=== PATIENT | female | born 1980 | race Caucasian/White ===

== ENCOUNTER 2017-01-18 19:05 | Emergency (ER) | payer OTHER ==
[2017-01-18 19:35] VITALS: RESP 16; TEMP 97.9
[2017-01-18] MEDS ORDERED: KETOROLAC 30 MG/ML 1 ML VIAL IVP STA (19:42)
[2017-01-18] MEDS ORDERED: ORPHENADRINE 30 MG/ML 2 ML VIAL IVP STA (19:42)
[2017-01-18 19:52] LABS: Appearance,Urine Cloudy (Clear); Bacteria,Urine Rare /hpf; Bilirubin,Urine Negative (Negative); Glucose,Urine (UA) Negative (Negative); Ketones,Urine Negative (Negative); Leukocyte Esterase,Urine Large (Negative); Nitrite,Urine Negative (Negative); PH, Urine 7.5 (5.0-8.0); Particle Count 16914; Protein,Urine Negative (Negative); RBC,Urine 6 /hpf (0-5); Specific Gravity,Urine 1.004 (1.001-1.035); Squamous Epithelial Cell,Urine 13 /hpf (0-4); UA Billing (MACRO vs. MICRO) MICRO; Urobilinogen,Urine <2.0 mg/dL (<2.0); WBC,Urine 25 /hpf (0-5)
--- NOTE | 2017-01-18 20:18 | ED ---
Back Pain HPI - General Chief Complaint: Back Pain/Injury Stated Complaint: Back Pain Time Seen by Provider: 01/18/17 19:08 Source: patient, EMS, RN notes reviewed, old records reviewed Limitations: physical limitation - History of Present Illness Initial Comments: Patient is a 36-year-old female presents emergency Department via EMS after receiving several more rounds of morphine for her back pain. Patient presented with past weekend she was doing a lot of weeding and a lot of repetitive movements and exacerbated her chronic back pain. She reports that she knows that she has L1-L2 disc submersion L3-L4. Patient also reports that she has been able to urinate. Denies any loss of bowel or bladder control. Patient reports that she follows up with Dr. Jes Jewell. Patient reports that she received [place] last urine took a few of her old pills. Patient answers. Patient denies emergency department expecting have an MRI. Patient denies any fever or chills, nausea or vomiting or any other associated symptoms. - Related Data Home Medications Medication Instructions Recorded Confirmed HYDROcodone/APAP 5-325MG [[place] 5] 1 tab PO TID PRN 04/08/14 01/18/17 Fluticasone Nasal Depue [Flonase 1 spray EA NOSTRIL DAILY 01/18/17 01/18/17 Nasal Depue] Norgestimate-Ethinyl Estradiol 1 tab PO DAILY 01/18/17 01/18/17 [Ortho Tri-Cyclen Lo Tablet] Pseudoephedrine 12Hr [Sudafed 12Hr] 120 mg PO Q12H 01/18/17 01/18/17 Previous Rx's Medication Instructions Recorded Baclofen 10 mg PO TID #30 tab 01/18/17 HYDROcodone/APAP 10-325MG [[place] 1 tab PO Q6H PRN #12 tab 01/18/17 10-325] Allergies Allergy/AdvReac Type Severity Reaction Status Date / Time No Known Allergies Allergy Verified 01/18/17 19:36 Review of Systems ROS Statement: Those systems with pertinent positive or pertinent negative responses have been documented in the HPI. ROS Other: All systems not noted in ROS Statement are negative. Past Medical History Additional Past Medical History / Comment(s): herniated disc History of Any Multi-Drug Resistant Organisms: None Reported Additional Past Surgical History / Comment(s): breast biopsy Past Psychological History: No Psychological Hx Reported Smoking Status: Never smoker Past Alcohol Use History: None Reported Past Drug Use History: None Reported General Exam - General Exam Comments Initial Comments: Well-appearing 36-year-old female. No acute distress. Limitations: physical limitation General appearance: alert, in no apparent distress Head exam: Present: atraumatic, normocephalic, normal inspection Eye exam: Present: normal appearance, PERRL, EOMI. Absent: scleral icterus, conjunctival injection, periorbital swelling ENT exam: Present: normal exam, mucous membranes moist Neck exam: Present: normal inspection Respiratory exam: Present: normal lung sounds bilaterally. Absent: respiratory distress, wheezes, rales, rhonchi, stridor Cardiovascular Exam: Present: regular rate, normal rhythm, normal heart sounds. Absent: systolic murmur, diastolic murmur, rubs, gallop, clicks GI/Abdominal exam: Present: soft, normal bowel sounds. Absent: distended, tenderness, guarding, rebound, rigid Extremities exam: Present: normal inspection, full ROM, normal capillary refill. Absent: tenderness, pedal edema, joint swelling, calf tenderness Back exam: Present: normal inspection Neurological exam: Present: alert, oriented X3, CN II-XII intact Psychiatric exam: Present: normal affect, normal mood Skin exam: Present: warm, dry, intact, normal color. Absent: rash Course Vital Signs 01/18/17 01/18/17 01/18/17 19:20 19:29 21:03 Temperature 97.9 F Pulse Rate 80 77 Respiratory 16 16 Rate Blood Pressure 113/74 113/66 O2 Sat by Pulse 100 100 Oximetry Medical Decision Making - Medical Decision Making 36-year-old female. No acute distress presents emergency department via EMS for acute exacerbation of chronic back pain. She received some MORPHINE. Patient also received 30 mg of Toradol and 60 mg of Norflex IV. Patient is requesting an MRI. Patient was able to ambulate from the wheelchair to the bathroom and urinated for us. Patient urinalysis does show signs of WBC and leukocyte esterase. Culture will be obtained. Patient was given x-ray of the lumbar and thoracic spine. Xrays are neagive. Patient will be discharged with Rx for pain medication and follow up with Orthopedic. Javier written for outpatient MRI lumbar spine. Patient undrestands treatment plan and will comply. - Lab Data Lab Results 01/18/17 01/18/17 Range/Units 19:35 19:35 Urine Color Light Yellow Urine Appearance Cloudy H (Clear) Urine pH 7.5 (5.0-8.0) Ur Specific [place] 1.004 (1.001-1.035) Urine Protein Negative (Negative) Urine Glucose (UA) Negative (Negative) Urine Ketones Negative (Negative) Urine Blood Negative (Negative) Urine Nitrite Negative (Negative) Urine Bilirubin Negative (Negative) Urine Urobilinogen <2.0 (<2.0) mg/dL Ur Leukocyte Esterase Large H (Negative) Urine RBC 6 H (0-5) /hpf Urine WBC 25 H (0-5) /hpf Ur Squamous Epith Cells 13 H (0-4) /hpf Urine Bacteria Rare H (None) /hpf Urine Yeast (Budding) Occasional H (None) /hpf Urine HCG, Qual Not Detected (Not Detectd) - Radiology Data Radiology results: report reviewed XRay negative for any acute process. Disposition Clinical Impression: Acute exacerbation of chronic low back pain Disposition: HOME SELF-CARE Condition: Good Instructions: Acute Low Back Pain (ED) Additional Instructions: Follow-up with her primary care provider as well as her back specialist within the next week. Take pain medication and muscle relaxers as prescribed. Patient should complete outpatient MRI within the next 3 weeks as directed. Return to the emergency department if any alarming signs or symptoms occur. Prescriptions: Baclofen 10 mg PO TID #30 tab HYDROcodone/APAP 10-325MG [[place] 10-325] 1 tab PO Q6H PRN #12 tab PRN Reason: Pain Referrals: Vladimir Bazzi DO [Primary Care Provider] - 1-2 days Time of Disposition: 20:43
--- NOTE | 2017-01-18 20:20 | XR ---
EXAMINATION TYPE: XR thoracic spine 2V DATE OF EXAM: 01/18/2017 CLINICAL HISTORY: pain TECHNIQUE: Frontal, lateral, and swimmer's view of thoracic spine are obtained. COMPARISON: None. FINDINGS: Thoracic spine show satisfactory alignment without evidence of acute fracture or dislocatio n. Vertebral body heights are preserved. Disc spaces are well preserved. Visualized ribs are unrem arkable. IMPRESSION: No acute fracture or dislocation is seen in the thoracic spine. ICD 10 NO FRACTURE, INIT IAL EVALUATION
--- NOTE | 2017-01-18 20:21 | XR ---
EXAMINATION TYPE: XR lumbar spine 2 or 3V DATE OF EXAM: 01/18/2017 CLINICAL HISTORY: pain TECHNIQUE: Three views of the lumbar spine are submitted. COMPARISON: None. FINDINGS: There are 5 lumbar type vertebral bodies identified. The lumbar spine shows satisfactory alignment w ithout evidence of acute fracture or dislocation. Vertebral body heights are within normal limits. Disc spaces are within normal limits. The overlying soft tissue appears unremarkable. IMPRESSION: No acute fracture or dislocation is seen in the lumbar spine. ICD 10 NO FRACTURE, INITIAL EVALUATION
[2017-01-18 21:04] VITALS: BP 113/66; PULSE 77
== END 2017-01-18 21:02 | disposition home or self-care (01) ==
LOC: EC 19:05
DX: M54.5 Low back pain (principal); G89.29 Other chronic pain; Z79.3 Long term (current) use of hormonal contraceptives; Z79.899 Other long term (current) drug therapy
CPT/HCPCS: 81001; 81025; 72070; 72100; 99284; 96374; 96375; J2360; J1885

== ENCOUNTER 2017-05-01 20:20 | Emergency (ER) | payer OTHER ==
[2017-05-01 20:33] VITALS: RESP 16
[2017-05-01] MEDS ORDERED: PANTOPRAZOLE 40 MG/10 ML VIAL IVP STA (21:50)
[2017-05-01] MEDS ORDERED: SODIUM CHLORIDE 0.9% 500 ML IV STA (21:50)
[2017-05-01] MEDS ORDERED: ONDANSETRON 4 MG/2 ML VIAL IVP STA (22:06)
[2017-05-01] MEDS ORDERED: MAG HYDROX/AL HYDROX/SIMETH 30 ML, HYOSCYAMINE ELIXIR 10 ML, CIMETIDINE HCL 300 MG PO STA ×3 (22:06)
[2017-05-01 22:23] LABS: Basophils % (A) 0 %; CH 32.8; CHCM 35.4; Eosinophils # (A) 0.1 k/uL (0-0.7); Eosinophils % (A) 1 %; HCT 38.6 % (34.0-46.0); HDW 2.61; HGB 13.2 gm/dL (11.4-16.0); Luc # (Auto) 0.12; Luc % (Auto) 2; Lymphocytes # (A) 1.9 k/uL (1.0-4.8); Lymphocytes % (A) 30 %; MCH 31.9 pg (25.0-35.0); MCHC 34.2 g/dL (31.0-37.0); MCV 93.3 fL (80.0-100.0); Mean Platelet Volume 6.9; Monocytes # (A) 0.4 k/uL (0-1.0); Monocytes % (A) 6 %; Neutrophils # (A) 3.9 k/uL (1.3-7.7); Neutrophils % (A) 61 %; RBC 4.13 m/uL (3.80-5.40); RDW 13.2 % (11.5-15.5); WBC 6.3 k/uL (3.8-10.6)
--- NOTE | 2017-05-01 22:31 | ED ---
Abdominal Pain HPI - General Chief Complaint: Abdominal Pain Stated Complaint: upper abdominal pain Time Seen by Provider: 05/01/17 21:50 Source: patient, RN notes reviewed Mode of arrival: ambulatory Limitations: no limitations - History of Present Illness Initial Comments: This a 36-year-old female presents emergency Department chief complaint epigastric pain. Patient states this started primarily today. She's had some on and off discomfort last few days. Patient states that she was diagnosed with an ulcer in the past but never had an EGD. Patient states that she was on antiacids for several weeks in symptoms resolved. Patient states that she has not taken the medication in years. Patient denies any vomiting states that she does have some nausea. Denies fever, chills, diarrhea constipation. She states eating does not make symptoms better or worse at this time. Has not tried any [id number] medications to alleviate her symptoms. - Related Data Home Medications Medication Instructions Recorded Confirmed Norgestimate-Ethinyl Estradiol 1 tab PO DAILY 01/18/17 05/01/17 [Ortho Tri-Cyclen Lo Tablet] HYDROcodone/APAP 10-325MG [[place] 1 tab PO TID PRN 05/01/17 05/01/17 10-325] Previous Rx's Medication Instructions Recorded Baclofen 10 mg PO TID #30 tab 01/18/17 Omeprazole 40 mg PO DAILY #14 capsule. 05/01/17 Allergies Allergy/AdvReac Type Severity Reaction Status Date / Time No Known Allergies Allergy Verified 05/01/17 21:54 Review of Systems ROS Statement: Those systems with pertinent positive or pertinent negative responses have been documented in the HPI. ROS Other: All systems not noted in ROS Statement are negative. Past Medical History Past Medical History: No Reported History Additional Past Medical History / Comment(s): herniated disc, ulcer History of Any Multi-Drug Resistant Organisms: None Reported Past Surgical History: No Surgical Hx Reported Additional Past Surgical History / Comment(s): breast biopsy Past Psychological History: No Psychological Hx Reported Smoking Status: Never smoker Past Alcohol Use History: None Reported Past Drug Use History: None Reported General Exam Limitations: no limitations General appearance: alert, in no apparent distress Neck exam: Present: normal inspection. Absent: tenderness, meningismus, lymphadenopathy Respiratory exam: Present: normal lung sounds bilaterally. Absent: respiratory distress, wheezes, rales, rhonchi, stridor Cardiovascular Exam: Present: regular rate, normal rhythm, normal heart sounds. Absent: systolic murmur, diastolic murmur, rubs, gallop, clicks GI/Abdominal exam: Present: soft, tenderness (Mild epigastric tenderness), normal bowel sounds. Absent: distended, guarding, rebound, rigid Back exam: Absent: CVA tenderness (R), CVA tenderness (L) Skin exam: Present: warm, dry, intact, normal color. Absent: rash Course Vital Signs 05/01/17 20:30 Temperature 97.7 F Pulse Rate 69 Respiratory 16 Rate Blood Pressure 143/89 O2 Sat by Pulse 99 Oximetry Medical Decision Making - Medical Decision Making 36-year-old female presented for abdominal pain. Patient states that she did have some improvement with GI cocktail. Patient's labwork unremarkable. Patient does have moderate amount of bowel gas and stool. This may be comp keeping her issue. Patient was started on omeprazole. Return parameters were discussed. - Lab Data Result diagrams: 05/01/17 22:11 05/01/17 22:11 Lab Results 05/01/17 05/01/17 05/01/17 Range/Units 22:01 22:01 22:11 WBC (3.8-10.6) k/uL RBC (3.80-5.40) m/uL Hgb (11.4-16.0) gm/dL Hct (34.0-46.0) % MCV (80.0-100.0) fL MCH (25.0-35.0) pg MCHC (31.0-37.0) g/dL RDW (11.5-15.5) % Plt Count (150-450) k/uL Neutrophils % % Lymphocytes % % Monocytes % % Eosinophils % % Basophils % % Neutrophils # (1.3-7.7) k/uL Lymphocytes # (1.0-4.8) k/uL Monocytes # (0-1.0) k/uL Eosinophils # (0-0.7) k/uL Basophils # (0-0.2) k/uL Sodium 139 (137-145) mmol/L Potassium 3.6 (3.5-5.1) mmol/L Chloride 104 (98-107) mmol/L Carbon Dioxide 26 (22-30) mmol/L Anion Gap 9 mmol/L BUN 13 (7-17) mg/dL Creatinine 0.75 (0.52-1.04) mg/dL Est GFR (MDRD) Af Amer >60 (>60 ml/min/1.73 sqM) Est GFR (MDRD) Non-Af >60 (>60 ml/min/1.73 sqM) Glucose 91 (74-99) mg/dL Calcium 9.1 (8.4-10.2) mg/dL Total Bilirubin 1.3 (0.2-1.3) mg/dL AST 18 (14-36) U/L ALT 27 (9-52) U/L Alkaline Phosphatase 58 (38-126) U/L Total Protein 6.7 (6.3-8.2) g/dL Albumin 4.4 (3.5-5.0) g/dL Amylase <30 L (30-110) U/L Lipase 64 (23-300) U/L Urine Color Yellow Urine Appearance Clear (Clear) Urine pH 5.5 (5.0-8.0) Ur Specific [place] 1.027 (1.001-1.035) Urine Protein Trace H (Negative) Urine Glucose (UA) Negative (Negative) Urine Ketones Trace H (Negative) Urine Blood Moderate H (Negative) Urine Nitrite Negative (Negative) Urine Bilirubin Negative (Negative) Urine Urobilinogen <2.0 (<2.0) mg/dL Ur Leukocyte Esterase Moderate H (Negative) Urine RBC 9 H (0-5) /hpf Urine WBC 6 H (0-5) /hpf Ur Squamous Epith Cells 6 H (0-4) /hpf Urine Bacteria Rare H (None) /hpf Urine Mucus Moderate H (None) /hpf Urine HCG, Qual Not Detected (Not Detectd) 05/01/17 Range/Units 22:11 WBC 6.3 (3.8-10.6) k/uL RBC 4.13 (3.80-5.40) m/uL Hgb 13.2 (11.4-16.0) gm/dL Hct 38.6 (34.0-46.0) % MCV 93.3 (80.0-100.0) fL MCH 31.9 (25.0-35.0) pg MCHC 34.2 (31.0-37.0) g/dL RDW 13.2 (11.5-15.5) % Plt Count 271 (150-450) k/uL Neutrophils % 61 % Lymphocytes % 30 % Monocytes % 6 % Eosinophils % 1 % Basophils % 0 % Neutrophils # 3.9 (1.3-7.7) k/uL Lymphocytes # 1.9 (1.0-4.8) k/uL Monocytes # 0.4 (0-1.0) k/uL Eosinophils # 0.1 (0-0.7) k/uL Basophils # 0.0 (0-0.2) k/uL Sodium (137-145) mmol/L Potassium (3.5-5.1) mmol/L Chloride (98-107) mmol/L Carbon Dioxide (22-30) mmol/L Anion Gap mmol/L BUN (7-17) mg/dL Creatinine (0.52-1.04) mg/dL Est GFR (MDRD) Af Amer (>60 ml/min/1.73 sqM) Est GFR (MDRD) Non-Af (>60 ml/min/1.73 sqM) Glucose (74-99) mg/dL Calcium (8.4-10.2) mg/dL Total Bilirubin (0.2-1.3) mg/dL AST (14-36) U/L ALT (9-52) U/L Alkaline Phosphatase (38-126) U/L Total Protein (6.3-8.2) g/dL Albumin (3.5-5.0) g/dL Amylase (30-110) U/L Lipase (23-300) U/L Urine Color Urine Appearance (Clear) Urine pH (5.0-8.0) Ur Specific [place] (1.001-1.035) Urine Protein (Negative) Urine Glucose (UA) (Negative) Urine Ketones (Negative) Urine Blood (Negative) Urine Nitrite (Negative) Urine Bilirubin (Negative) Urine Urobilinogen (<2.0) mg/dL Ur Leukocyte Esterase (Negative) Urine RBC (0-5) /hpf Urine WBC (0-5) /hpf Ur Squamous Epith Cells (0-4) /hpf Urine Bacteria (None) /hpf Urine Mucus (None) /hpf Urine HCG, Qual (Not Detectd) Disposition Clinical Impression: Abdominal pain, Gastritis Disposition: HOME SELF-CARE Condition: Stable Instructions: Abdominal Pain (ED) Additional Instructions: Please return to the Emergency Department if symptoms worsen or any other concerns. Prescriptions: Omeprazole 40 mg PO DAILY #14 capsule. Referrals: Vladimir Bazzi DO [Primary Care Provider] - 1-2 days Time of Disposition: 22:50
[2017-05-01 22:33] LABS: ALT 27 U/L (9-52); AST 18 U/L (14-36); Alkaline Phosphatase 58 U/L (38-126); Amylase <30 U/L (30-110); Anion Gap 9 mmol/L; Blood Urea Nitrogen 13 mg/dL (7-17); Calcium 9.1 mg/dL (8.4-10.2); Carbon Dioxide 26 mmol/L (22-30); Chloride 104 mmol/L (98-107); Glucose 91 mg/dL (74-99); Non-African American GFR(MDRD) >60 (>60 ml/min/1.73 sqM); Potassium 3.6 mmol/L (3.5-5.1); Sodium 139 mmol/L (137-145); Total Bilirubin 1.3 mg/dL (0.2-1.3); Total Protein 6.7 g/dL (6.3-8.2)
[2017-05-01 22:40] LABS: Appearance,Urine Clear (Clear); Bacteria,Urine Rare /hpf; Bilirubin,Urine Negative (Negative); Glucose,Urine (UA) Negative (Negative); Ketones,Urine Trace (Negative); Leukocyte Esterase,Urine Moderate (Negative); Mucus,Urine Moderate /hpf; Nitrite,Urine Negative (Negative); PH, Urine 5.5 (5.0-8.0); Particle Count 7111; Protein,Urine Trace (Negative); RBC,Urine 9 /hpf (0-5); Specific Gravity,Urine 1.027 (1.001-1.035); Squamous Epithelial Cell,Urine 6 /hpf (0-4); UA Billing (MACRO vs. MICRO) MICRO; Urobilinogen,Urine <2.0 mg/dL (<2.0); WBC,Urine 6 /hpf (0-5)
--- NOTE | 2017-05-01 23:08 | XR ---
EXAM: XR Abdomen Complete, 2 or More Views CLINICAL HISTORY: Reason: abdominal pain TECHNIQUE: Frontal view of the abdomen/pelvis with upright view of the abdomen. COMPARISON: No relevant prior studies available. FINDINGS: Intraperitoneal space: No free air. Gastrointestinal tract: Unremarkable. No dilation. Bones/joints: Unremarkable. IMPRESSION: Normal abdominal x-rays.
[2017-05-01 23:09] VITALS: BP 106/68; PULSE 68; TEMP 96.9
== END 2017-05-01 23:09 | disposition home or self-care (01) ==
LOC: EC 20:20
DX: K29.70 Gastritis, unspecified, without bleeding (principal); Z87.11 Personal history of peptic ulcer disease; Z79.3 Long term (current) use of hormonal contraceptives
CPT/HCPCS: 36415; 80053; 82150; 83690; 85025; 81001; 81025; 74000; 99284; 96374; 96375; 96361; J2405; C9113

== ENCOUNTER 2017-10-27 21:50 | Emergency (ER) | payer OTHER ==
[2017-10-27 21:56] VITALS: BP 126/69; PULSE 110; RESP 22; TEMP 98
[2017-10-27] MEDS ORDERED: LORazepam 2 MG/ML INJ IM STA (22:03)
[2017-10-27] MEDS ORDERED: KETOROLAC 60 MG/2 ML VIAL IM STA (22:03)
[2017-10-27] MEDS ORDERED: ORPHENADRINE 30 MG/ML 2 ML VIAL IM STA (22:03)
--- NOTE | 2017-10-27 22:07 | ED ---
General Adult HPI - General Chief complaint: Back Pain/Injury Stated complaint: Back pain Time Seen by Provider: 10/27/17 21:59 Source: patient, RN notes reviewed Mode of arrival: wheelchair Limitations: no limitations - History of Present Illness Initial comments: 37-year-old female presents to the emergency department with a chief complaint of flareup of her chronic back pain. Patient states that she chronically has back pain flared up today. She tried her [place] at home with no improvement to her pain. She states that it is racing on her left leg. Patient states he keeps asking. No loss by bladder function. She was concerned because it just keeps getting worse so she thought that she should be seen. He denies any falls traumas or injuries to the pain.Patient denies any recent fever, chills, shortness of breath, chest pain, abdominal pain, nausea vomiting, numbness or tingling, dysuria or hematuria, constipation or diarrhea, headaches or visual changes, or any other current symptoms. - Related Data Home Medications Medication Instructions Recorded Confirmed Norgestimate-Ethinyl Estradiol 1 tab PO DAILY 01/18/17 05/01/17 [Ortho Tri-Cyclen Lo Tablet] HYDROcodone/APAP 10-325MG [[place] 1 tab PO TID PRN 05/01/17 05/01/17 10-325] Previous Rx's Medication Instructions Recorded Baclofen 10 mg PO TID #30 tab 01/18/17 Omeprazole 40 mg PO DAILY #14 capsule. 05/01/17 Ibuprofen [Motrin] 600 mg PO Q6HR PRN #20 tab 10/27/17 Orphenadrine [Norflex] 100 mg PO Q12H #10 tablet.er 10/27/17 predniSONE 50 mg PO DAILY #5 tab 10/27/17 Allergies Allergy/AdvReac Type Severity Reaction Status Date / Time No Known Allergies Allergy Verified 05/01/17 21:54 Review of Systems ROS Statement: Those systems with pertinent positive or pertinent negative responses have been documented in the HPI. ROS Other: All systems not noted in ROS Statement are negative. Past Medical History Past Medical History: No Reported History Additional Past Medical History / Comment(s): herniated disc, ulcer History of Any Multi-Drug Resistant Organisms: None Reported Past Surgical History: No Surgical Hx Reported Additional Past Surgical History / Comment(s): breast biopsy Past Psychological History: No Psychological Hx Reported Smoking Status: Never smoker Past Alcohol Use History: None Reported Past Drug Use History: None Reported General Exam Limitations: no limitations General appearance: alert, anxious Head exam: Present: atraumatic, normocephalic, normal inspection ENT exam: Present: normal exam, mucous membranes moist Neck exam: Present: normal inspection. Absent: tenderness, meningismus, lymphadenopathy Respiratory exam: Present: normal lung sounds bilaterally. Absent: respiratory distress, wheezes, rales, rhonchi, stridor Cardiovascular Exam: Present: regular rate, normal rhythm, normal heart sounds. Absent: systolic murmur, diastolic murmur, rubs, gallop, clicks Back exam: Present: normal inspection, full ROM. Absent: tenderness Neurological exam: Present: alert, oriented X3 Psychiatric exam: Present: normal affect, normal mood Skin exam: Present: warm, dry, intact, normal color. Absent: rash Course Vital Signs 10/27/17 21:52 Temperature 98.0 F Pulse Rate 110 H Respiratory 22 Rate Blood Pressure 126/69 O2 Sat by Pulse 97 Oximetry Medical Decision Making - Medical Decision Making 37-year-old female presents for flareup of chronic back pain. At this time with the injections patient is having improvement of her symptoms. At this time we discussed cannot refill her narcotic pain medications and she is receiving them from her doctor. This time we discussed she is to follow-up with her doctor. We did discuss return parameters all questions. Patient stated that she understood and she is agreement this plan. All questions have been answered. She will be discharged. Disposition Clinical Impression: Strain of lumbar region, Chronic back pain Disposition: HOME SELF-CARE Condition: Stable Instructions: Chronic Back Pain (ED) Additional Instructions: Please use medication as discussed. Please follow up with family doctor if symptoms have not improved over the next two days. Please return to the emergency room if your symptoms increase or worsen or for any other concerns. Prescriptions: Ibuprofen [Motrin] 600 mg PO Q6HR PRN #20 tab PRN Reason: Pain Orphenadrine [Norflex] 100 mg PO Q12H #10 tablet.er predniSONE 50 mg PO DAILY #5 tab Referrals: Vladimir Bazzi DO [Primary Care Provider] - 1-2 days Time of Disposition: 22:54
[2017-10-27] MEDS ORDERED: MORPHINE SULFATE 4 MG/ML SYRINGE IM STA (22:54)
== END 2017-10-27 23:29 | disposition home or self-care (01) ==
LOC: EC 21:50
DX: S39.012A Strain of muscle, fascia and tendon of lower back, initial encounter (principal); G89.29 Other chronic pain; Z79.3 Long term (current) use of hormonal contraceptives
CPT/HCPCS: 99283; 96372 ×4; J2060; J2270; J2360; J1885

== ENCOUNTER 2018-04-03 15:18 | Emergency (ER) | payer OTHER ==
[2018-04-03 15:35] VITALS: BP 123/68; PULSE 105; RESP 16; TEMP 98.1
[2018-04-03] MEDS ORDERED: KETOROLAC 30 MG/ML 1 ML VIAL IM STA (16:06)
[2018-04-03] MEDS ORDERED: ONDANSETRON ODT 4 MG TAB PO STA (16:06)
--- NOTE | 2018-04-03 17:02 | CT ---
EXAMINATION TYPE: CT brain wo con DATE OF EXAM: 04/03/2018 COMPARISON: None HISTORY: Head pain after injury. CT DLP: 1257 mGycm. Automated Exposure Control for Dose Reduction was Utilized. TECHNIQUE: CT scan of the head is performed without contrast. FINDINGS: Ventricles have normal size. There is no mass effect nor midline shift. There is no sign of intracranial hemorrhage. The calvarium is intact. IMPRESSION: Negative CT scan of the brain.
--- NOTE | 2018-04-03 17:15 | ED ---
General Adult HPI - General Chief complaint: Head Injury Stated complaint: Head Injury Time Seen by Provider: 04/03/18 15:49 Source: patient Mode of arrival: ambulatory Limitations: no limitations - History of Present Illness Initial comments: [id number] female with past medical history of chronic low-back pain who presents today for chief complaint of headache. Patient states that she was climbing into her father's truck on Monday morning when she went to jump and she hit the top her head she denies loss consciousness. Since patient has admitted to nausea, headache and on and off woozy feeling. When the symptoms persisted today patient decided to present to emergency department. Patient has not gone to work in the past 2 days due to her symptoms. Patient denies visual changes, loss of hearing muscle weakness, paresthesias, loss sensation, facial asymmetry, Or any other symptoms. Patient has not had any episodes of vomiting. Patient denies any recent fever, chills, shortness of breath, chest pain, back pain, abdominal pain, vomiting, numbness or tingling, dysuria or hematuria, constipation or diarrhea, or visual changes, or any other complaints. - Related Data Home Medications Medication Instructions Recorded Confirmed Norgestimate-Ethinyl Estradiol 1 tab PO DAILY 01/18/17 05/01/17 [Ortho Tri-Cyclen Lo Tablet] HYDROcodone/APAP 10-325MG [[place] 1 tab PO TID PRN 05/01/17 05/01/17 10-325] Previous Rx's Medication Instructions Recorded Baclofen 10 mg PO TID #30 tab 01/18/17 Omeprazole 40 mg PO DAILY #14 capsule. 05/01/17 Ibuprofen [Motrin] 600 mg PO Q6HR PRN #20 tab 10/27/17 Orphenadrine [Norflex] 100 mg PO Q12H #10 tablet.er 10/27/17 predniSONE 50 mg PO DAILY #5 tab 10/27/17 Ondansetron [Zofran] 4 mg PO Q8HR PRN 2 Days #6 tab 04/03/18 Allergies Allergy/AdvReac Type Severity Reaction Status Date / Time No Known Allergies Allergy Verified 05/01/17 21:54 Review of Systems ROS Statement: Those systems with pertinent positive or pertinent negative responses have been documented in the HPI. ROS Other: All systems not noted in ROS Statement are negative. Constitutional: Denies: fever, chills Eyes: Denies: vision change ENT: Denies: hearing loss Respiratory: Denies: cough, dyspnea Cardiovascular: Denies: chest pain, palpitations Gastrointestinal: Denies: abdominal pain, nausea, vomiting Genitourinary: Denies: frequency, hematuria Musculoskeletal: Reports: back pain (chronic, denies neck pain) Skin: Denies: rash, lesions Neurological: Reports: headache. Denies: weakness, numbness, paresthesias, confusion, abnormal gait, vertigo Past Medical History Past Medical History: No Reported History Additional Past Medical History / Comment(s): herniated disc, ulcer, endometriosis, fibroids, History of Any Multi-Drug Resistant Organisms: None Reported Past Surgical History: No Surgical Hx Reported Additional Past Surgical History / Comment(s): breast biopsy L breast Past Psychological History: No Psychological Hx Reported Smoking Status: Never smoker Past Alcohol Use History: None Reported Past Drug Use History: None Reported General Exam - General Exam Comments Initial Comments: General: The patient is awake and alert, in no distress, and does not appear acutely ill. Eye: Pupils are equal, round and reactive to light, extra-ocular movements are intact. No nystagmus. There is normal conjunctiva bilaterally. No signs of icterus. Ears, nose, mouth and throat: There are moist mucous membranes and no oral lesions. Neck: No tenderness to palpation midline or paravertebral the cervical spine, full ROM with flexion, extension, lateral flexion and rotation Cardiovascular: There is a regular rate and rhythm. No murmur, rub or gallop is appreciated. Respiratory: Lungs are clear to auscultation, respirations are non-labored, breath sounds are equal. No wheezes, stridor, rales, or rhonchi.. Skin: Skin is warm and dry and no rashes or lesions are noted. Psychiatric: Cooperative, appropriate mood & affect, normal judgment. Neurological: memory intact to immediately, intermediate and ferry terminal supervisor recall. Able to follow simple verbal. . High quality, labial (pa) and lingual (la) speech. Low quality posterior pharynx/larynx (ga) voice sounds. Able to express general knowledge (days in a week). No hemineglect or inattention noted. Finger agnosia (-) and spatially oriented. Light touch sensation present over the face, chest, abdomen, back, UE bilaterally, and LE bilaterally. Able to localize point during point localization b/l and extinction. No visible bulk atrophy, hypertrophy, fasciculations, or myoclonus of the UE or LE b/l. Full PROM in UE and LE b/l. Bilateral muscle strength 5/5 for the following muscles: deltoid, biceps, triceps, brachioradialis, wrist extensors/flexor, hip flexor, hip abductors/adductors, hamstrings, quadriceps, feet dorsiflexors/plantar flexors. heel to lemus coordinated and accurate b/l. Coordinated and even demonstration of hand flip, finger to thumb, and toe tap b/l. +2 brachioradialis, triceps, patellar, and Achilles DTR b/l. . Gait is coordinated and even in stride with tandem, toe and heel walk. Maintains balance with monopedal stance. (-) Romberg. (-) pronator drift. No nuchal rigidity. (-) Brudzinskis and Kernig signs. Limitations: no limitations Course Vital Signs 04/03/18 15:30 Temperature 98.1 F Pulse Rate 105 H Respiratory 16 Rate Blood Pressure 123/68 O2 Sat by Pulse 96 Oximetry Medical Decision Making - Medical Decision Making CT scan revealed no acute intracranial process. Neurological exam WNL- no focal deficits. Pt was given zofran for nausea and a toradol shot which she stated helped with symptoms. Given MOA, days since accident, exam findings I feel patient is stable for discharge with diagnosis of concussion. Patient was educated on no contact sports until further validation by primary care provider and complete symptom resolution. She was requesting work note. Case discussed with Dr. Chappell patient given RX for zofran for nausea and instruction to use OTC pain medication or home medication of norco for headache as needed and directed by PCP/packaging. Patient agreed plan discharge in stable condition. Disposition Clinical Impression: Concussion Disposition: HOME SELF-CARE Condition: Good Instructions: Concussion (ED) Additional Instructions: Please use over the counter or home medication as discussed. No contact sports until primary care clearance and resolution of symptoms completely. Please follow-up with family doctor in the next 2 days of symptoms have not improved. Please return to emergency room if the symptoms increase or worsen or for any other concerns, as discussed. Prescriptions: Ondansetron [Zofran] 4 mg PO Q8HR PRN 2 Days #6 tab PRN Reason: Nausea Is patient prescribed a controlled substance at d/c from ED?: No Referrals: Vladimir Bazzi DO [Primary Care Provider] - 1-2 days Time of Disposition: 17:15
== END 2018-04-03 17:28 | disposition home or self-care (01) ==
LOC: EC 15:18
DX: S06.0X0A Concussion without loss of consciousness, initial encounter (principal); Z79.3 Long term (current) use of hormonal contraceptives; W22.8XXA Striking against or struck by other objects, initial encounter; Y93.89 Activity, other specified
CPT/HCPCS: 70450; 99283; 96372; J1885

== ENCOUNTER → 2018-06-20 | Outpatient (CLI) | payer OTHER ==
--- NOTE | 2018-06-25 08:34 | MM ---
Reason for exam: screening (asymptomatic). Last mammogram was performed 7 years and 3 months ago. History: Benign ultrasound-guided core biopsy of the right breast, March 15, 2011. Taking hormonal contraceptives for 2 months. Physical Findings: A clinical breast exam by your physician is recommended on an annual basis and results should be correlated with mammographic findings. MG 3D Screening Mammo W/Cad Bilateral CC and MLO view(s) were taken. Prior study comparison: March 15, 2011, CAD bilateral diagnostic mammogram. The breast tissue is extremely dense which could obscure a lesion on mammography. No significant changes when compared with prior studies. ASSESSMENT: Benign, BI-RAD 2 RECOMMENDATION: Routine screening mammogram of both breasts in 1 year.
== END | disposition home or self-care (01) ==
LOC: RADMAMWWP 10:19
PROVIDERS: ATTEND Obstetrics & Gynecology
DX: Z12.31 Encounter for screening mammogram for malignant neoplasm of breast (principal); Z80.3 Family history of malignant neoplasm of breast
CPT/HCPCS: 77063; 77067

== ENCOUNTER 2018-09-19 17:27 | Emergency (ER) | payer OTHER ==
[2018-09-19 17:34] VITALS: RESP 18; TEMP 98.1
--- NOTE | 2018-09-19 18:00 | XR ---
EXAMINATION TYPE: XR chest 2V DATE OF EXAM: 09/19/2018 COMPARISON: NONE HISTORY: Cough TECHNIQUE: Frontal and lateral views of the chest are obtained. FINDINGS: Heart and mediastinum are normal. Lungs are clear. Diaphragm is normal. Bony thorax appear s normal. IMPRESSION: Normal chest
[2018-09-19] MEDS ORDERED: IPRATROPIUM-ALBUTEROL 3 ML NEB INHALATION STA (18:27)
[2018-09-19] MEDS ORDERED: DEXAMETHASONE 4 MG TAB PO STA (18:27)
--- NOTE | 2018-09-19 18:29 | ED ---
General Adult HPI - General Chief complaint: Upper Respiratory Infection Stated complaint: cough Time Seen by Provider: 09/19/18 18:22 Source: patient, RN notes reviewed Mode of arrival: ambulatory Limitations: no limitations - History of Present Illness Initial comments: Patient is a 38 year old female who presents emergency department with complaint of cough that started today that is occasionally productive of mucus. She also complains of feeling hot and cold, nasal congestion, and fatigue since yesterday. Denies possibility of . Patient denies any recent chest pain, back pain, abdominal pain, nausea or vomiting, numbness or tingling, constipation or diarrhea, headaches or visual changes, or any other complaints. - Related Data Home Medications Medication Instructions Recorded Confirmed Norgestimate-Ethinyl Estradiol 1 tab PO DAILY 01/18/17 05/01/17 [Ortho Tri-Cyclen Lo Tablet] HYDROcodone/APAP 10-325MG [[place] 1 tab PO TID PRN 05/01/17 05/01/17 10-325] Previous Rx's Medication Instructions Recorded Baclofen 10 mg PO TID #30 tab 01/18/17 Omeprazole 40 mg PO DAILY #14 capsule.dr 05/01/17 Ibuprofen [Motrin] 600 mg PO Q6HR PRN #20 tab 10/27/17 Orphenadrine [Norflex] 100 mg PO Q12H #10 tablet.er 10/27/17 predniSONE 50 mg PO DAILY #5 tab 10/27/17 Ondansetron [Zofran] 4 mg PO Q8HR PRN 2 Days #6 tab 04/03/18 Benzonatate [Tessalon Perles] 100 mg PO TID PRN #20 capsule 09/19/18 Allergies Allergy/AdvReac Type Severity Reaction Status Date / Time No Known Allergies Allergy Verified 09/19/18 17:34 Review of Systems ROS Statement: Those systems with pertinent positive or pertinent negative responses have been documented in the HPI. ROS Other: All systems not noted in ROS Statement are negative. Past Medical History Past Medical History: No Reported History Additional Past Medical History / Comment(s): herniated disc, ulcer, endometriosis, fibroids, History of Any Multi-Drug Resistant Organisms: None Reported Past Surgical History: No Surgical Hx Reported Additional Past Surgical History / Comment(s): breast biopsy L breast Past Psychological History: No Psychological Hx Reported Smoking Status: Never smoker Past Alcohol Use History: None Reported Past Drug Use History: None Reported General Exam Limitations: no limitations General appearance: alert, in no apparent distress Head exam: Present: atraumatic, normocephalic Eye exam: Present: normal appearance, PERRL ENT exam: Present: TM's normal bilaterally, normal external ear exam, other ( Oropharynx mildly erythematous.) Respiratory exam: Present: normal lung sounds bilaterally. Absent: wheezes, rales, rhonchi Cardiovascular Exam: Present: normal rhythm, normal heart sounds Neurological exam: Present: alert, oriented X3 Course Vital Signs 09/19/18 09/19/18 09/19/18 17:30 19:07 19:21 Temperature 98.1 F Pulse Rate 108 H 104 H 104 H Respiratory 18 Rate Blood Pressure 161/78 O2 Sat by Pulse 96 Oximetry 09/19/18 09/19/18 09/19/18 19:29 19:52 20:21 Temperature Pulse Rate 92 Respiratory 18 Rate Blood Pressure 126/60 O2 Sat by Pulse Oximetry Medical Decision Making - Medical Decision Making Patient given Tessalon Perles, dexamethasone and DuoNeb here. Influenza A and B are negative. Rapid strep is negative. Chest x-ray is negative. Will discharge with a prescription for Tessalon Perles. Case discussed in detail with attending physician Dr. Sherwood. - Lab Data Lab Results 09/19/18 Range/Units 12:52 Influenza Type A RNA Not Detected (Not Detectd) Influenza Type B (PCR) Not Detected (Not Detectd) Group A Strep Rapid Negative (Negative) Disposition Clinical Impression: Upper respiratory infection Disposition: HOME SELF-CARE Condition: Good Instructions (If sedation given, give patient instructions): Upper Respiratory Infection (ED) Additional Instructions: Follow-up with your PCP in 1-2 days. Return to the emergency department if your symptoms worsen or other concerns. Prescriptions: Benzonatate [Tessalon Perles] 100 mg PO TID PRN #20 capsule PRN Reason: Cough Is patient prescribed a controlled substance at d/c from ED?: No Referrals: Vladimir Bazzi DO [Primary Care Provider] - 1-2 days
[2018-09-19] MEDS ORDERED: BENZONATATE 100 MG CAP PO STA (19:13)
[2018-09-19 19:52] VITALS: PULSE 92
[2018-09-19 20:21] VITALS: BP 126/60
== END 2018-09-19 20:24 | disposition home or self-care (01) ==
LOC: EC 17:27
DX: J06.9 Acute upper respiratory infection, unspecified (principal); Z79.890 Hormone replacement therapy
CPT/HCPCS: 94640; 87081; 87430; 87502; 71046; 99284; J8540

== ENCOUNTER → 2019-04-03 | Outpatient (CLI) | payer MEDICAID, OTHER ==
--- NOTE | 2019-04-03 14:00 | US ---
EXAMINATION TYPE: US pelvis complete transvag DATE OF EXAM: 04/03/2019 COMPARISON: NONE CLINICAL HISTORY: R10.32 Left lower quadrant pain. LLQ pain, IUD x 1 year, hx fibroids TECHNIQUE: Transvaginal (TV) and Transabdominal (TA) . Transabdominal sonographic images of the pel vis were acquired. Transvaginal sonographic images were medically necessary to better assess the fol lowing anatomy: Endometrium Date of LMP: 03/27/2019, EXAM MEASUREMENTS: Uterus: 9.4 x 6.1 x 5.1 cm Endometrial Stripe: 0.8 cm Right Ovary: 2.7 x 1.9 x 1.4 cm Left Ovary: 2.9 x 1.7 x 1.8 cm Limited transvaginal ultrasound imaging due to fibroid shadowing 1. Uterus: Anteverted Multiple hypoechoic lesions visualized. Largest seen in left uterus = 5.7 x 5.1 x 4.6 and best seen transabdominally. 2. Endometrium: IUD visualized 3. Right Ovary: wnl, only seen transabdominally 4. Left Ovary: wnl 5. Bilateral Adnexa: wnl 6. Posterior cul-de-sac: no free fluid Cervix- echogenic lesion visualized = 0.5 x 0.4 cm, either related to calcification or air within the cervix. IMPRESSION: 1. Enlarged and heterogenous fibroid uterus with largest probable fibroid measured at 5.7 cm that karl ears subserosal with peripheral vascular flow. 2. Intrauterine device is seen centrally within the endometrium.
== END | disposition home or self-care (01) ==
LOC: RADUSWWP 12:54
PROVIDERS: ATTEND Obstetrics & Gynecology
DX: D25.9 Leiomyoma of uterus, unspecified (principal); R68.89 Other general symptoms and signs
CPT/HCPCS: 76830; 76856

== ENCOUNTER 2020-05-15 12:07 | Emergency (ER) | payer MEDICAID ==
--- NOTE | 2020-05-15 12:39 | ED ---
Recheck HPI - General Chief Complaint: Upper Respiratory Infection Stated Complaint: cough/congestion Time Seen by Provider: 05/15/20 12:38 Source: patient, RN notes reviewed, old records reviewed Mode of arrival: ambulatory Limitations: no limitations - History of Present Illness Initial Comments: This is a 39-year-old female DF for evaluation positive coronavirus exposure with symptoms. Cough congestion upper Estrace symptoms, runny nose sore throat. Patient denying fevers. No travel history. Patient sent in for evaluation for work to have testing done MD Complaint: other (Patient sent in for coronavirus testing) -: days(s) Returns Today for: needs work/school note Symptoms Since Prior Visit: no new symptoms Context: other (7 for coronavirus testing) Associated Symptoms: shortness of breath - Related Data Home Medications Medication Instructions Recorded Confirmed Norgestimate-Ethinyl Estradiol 1 tab PO DAILY 01/18/17 05/01/17 [Ortho Tri-Cyclen Lo Tablet] HYDROcodone/APAP 10-325MG [[place] 1 tab PO TID PRN 05/01/17 05/01/17 10-325] Previous Rx's Medication Instructions Recorded Baclofen 10 mg PO TID #30 tab 01/18/17 Omeprazole 40 mg PO DAILY #14 capsule.dr 05/01/17 Ibuprofen [Motrin] 600 mg PO Q6HR PRN #20 tab 10/27/17 Orphenadrine [Norflex] 100 mg PO Q12H #10 tablet.er 10/27/17 predniSONE 50 mg PO DAILY #5 tab 10/27/17 Ondansetron [Zofran] 4 mg PO Q8HR PRN 2 Days #6 tab 04/03/18 Benzonatate [Tessalon Perles] 100 mg PO TID PRN #20 capsule 09/19/18 Cyclobenzaprine [Flexeril] 5 mg PO BID PRN #6 tablet 09/28/19 Allergies Allergy/AdvReac Type Severity Reaction Status Date / Time No Known Allergies Allergy Verified 05/15/20 12:36 Review of Systems ROS Statement: Those systems with pertinent positive or pertinent negative responses have been documented in the HPI. ROS Other: All systems not noted in ROS Statement are negative. Past Medical History Past Medical History: No Reported History Additional Past Medical History / Comment(s): herniated disc, ulcer, endometriosis, fibroids, History of Any Multi-Drug Resistant Organisms: None Reported Past Surgical History: No Surgical Hx Reported Additional Past Surgical History / Comment(s): breast biopsy L breast Past Psychological History: No Psychological Hx Reported Smoking Status: Never smoker Past Alcohol Use History: None Reported Past Drug Use History: None Reported General Exam Limitations: no limitations General appearance: alert, in no apparent distress Head exam: Present: atraumatic, normocephalic, normal inspection Eye exam: Present: normal appearance, PERRL, EOMI. Absent: scleral icterus, conjunctival injection, periorbital swelling ENT exam: Present: normal exam, mucous membranes moist Neck exam: Present: normal inspection. Absent: tenderness, meningismus, lymphadenopathy Respiratory exam: Present: normal lung sounds bilaterally. Absent: respiratory distress, wheezes, rales, rhonchi, stridor Cardiovascular Exam: Present: regular rate, normal rhythm, normal heart sounds. Absent: systolic murmur, diastolic murmur, rubs, gallop, clicks GI/Abdominal exam: Present: soft, normal bowel sounds. Absent: distended, te nderness, guarding, rebound, rigid Extremities exam: Present: normal inspection, full ROM, normal capillary refill. Absent: tenderness, pedal edema, joint swelling, calf tenderness Back exam: Present: normal inspection Neurological exam: Present: alert, oriented X3, CN II-XII intact Psychiatric exam: Present: normal affect, normal mood Skin exam: Present: warm, dry, intact, normal color. Absent: rash Course Vital Signs 05/15/20 12:31 Temperature 98.8 F Pulse Rate 100 Respiratory 20 Rate Blood Pressure 133/84 O2 Sat by Pulse 95 Oximetry - Reevaluation(s) Reevaluation #1: 05/15/20 13:34 Medical records reviewed Reevaluation #2: 05/15/20 13:34 Patient has no new complaints, no shortness of breath currently Reevaluation #3: 05/15/20 13:34 Informed results questions answered will follow-up on coronavirus report Medical Decision Making - Medical Decision Making 39 female DF for evaluation patient is positive a pressure symptoms, sent in for rule out coronavirus, coronavirus test is taken chest x-rays negative patient can be discharged home - Radiology Data Radiology results: report reviewed (Chest x-rays negative for acute disease), image reviewed Disposition Clinical Impression: Upper respiratory tract infection Narrative: ro CoronaVirus Disposition: HOME SELF-CARE Condition: Good Instructions (If sedation given, give patient instructions): Upper Respiratory Infection (ED) Is patient prescribed a controlled substance at d/c from ED?: No Referrals: Vladimir Bazzi DO [Primary Care Provider] - 1-2 days
--- NOTE | 2020-05-15 14:04 | XR ---
EXAMINATION TYPE: XR chest 2V DATE OF EXAM: 05/15/2020 CLINICAL HISTORY: Chest pain, cough TECHNIQUE: Frontal and lateral views of the chest are obtained. COMPARISON: 09/19/2018 radiograph FINDINGS: The cardiomediastinal silhouette is within normal limits for size. Pulmonary vasculature i s normal. There is no focal air space opacity, pleural effusion, or pneumothorax seen. The osseous st ructures are intact. IMPRESSION: No acute cardiopulmonary process.
[2020-05-15 14:06] VITALS: BP 129/78; PULSE 68; RESP 16; TEMP 98.2
== END 2020-05-15 14:05 | disposition home or self-care (01) ==
LOC: EC 12:07
DX: J06.9 Acute upper respiratory infection, unspecified (principal); Z20.828 Contact with and (suspected) exposure to other viral communicable diseases
CPT/HCPCS: 71046; 99284; U0003

== ENCOUNTER → 2020-06-24 | Outpatient (CLI) | payer MEDICAID | END | disposition home or self-care (01) | LOC: LABWHC1 09:52 | PROVIDERS: ATTEND Family Medicine | DX: Z03.818 Encounter for observation for suspected exposure to other biological agents ruled out (principal) | CPT/HCPCS: U0003; C9803 ==

== ENCOUNTER → 2021-04-24 | Outpatient (CLI) | payer OTHER ==
--- NOTE | 2021-04-24 19:33 | MR ---
EXAMINATION TYPE: MR cervical spine wo con DATE OF EXAM: 04/24/2021 COMPARISON: None HISTORY: Cervicalgia, migraines, numbness, tingling in hands, weakness Multiplanar multiecho imaging of the cervical spine without contrast. Cervical vertebra have normal alignment. Disc spaces are fairly normal. Cervical spinal cord has norm al signal pattern. There is no edema. There is developmentally large spinal canal. There is no spinal stenosis. There is no evidence of any significant cervical disc herniation or bulging. There is mini mal posterior disc bulging at C5-6 and C6-7. Brainstem appears intact. Prevertebral soft tissues appe ar intact. Facet joints are intact. There is no evidence of cervical paraspinal mass. IMPRESSION: Negative MR scan of the cervical spine. No cervical disc herniation or spinal stenosis. No fracture.
== END | disposition home or self-care (01) ==
LOC: RADMRIMAIN 14:18
PROVIDERS: ATTEND Psychiatry & Neurology Neurology
DX: M54.2 Cervicalgia (principal); G43.909 Migraine, unspecified, not intractable, without status migrainosus; R20.0 Anesthesia of skin; R20.2 Paresthesia of skin
CPT/HCPCS: 72141

== ENCOUNTER → 2021-09-08 | Outpatient (CLI) | payer OTHER ==
--- NOTE | 2021-09-09 10:08 | MM ---
Reason for exam: screening (asymptomatic). Last mammogram was performed 3 years and 3 months ago. History: Family history of breast cancer in aunt. Benign ultrasound-guided core biopsy of the right breast, March 15, 2011. Taking hormonal contraceptives for 2 months. Physical Findings: A clinical breast exam by your physician is recommended on an annual basis and results should be correlated with mammographic findings. MG 3D Screening Mammo W/Cad Bilateral CC and MLO view(s) were taken. Prior study comparison: June 20, 2018, bilateral MG 3d screening mammo w/cad. March 15, 2011, CAD bilateral diagnostic mammogram. The breast tissue is heterogeneously dense. This may lower the sensitivity of mammography. There is no discrete abnormality. ASSESSMENT: Negative, BI-RAD 1 RECOMMENDATION: Routine screening mammogram of both breasts in 1 year.
== END | disposition home or self-care (01) ==
LOC: RADMAMWWP 12:13
PROVIDERS: ATTEND Family Medicine
DX: Z12.31 Encounter for screening mammogram for malignant neoplasm of breast (principal); Z80.3 Family history of malignant neoplasm of breast
CPT/HCPCS: 77063; 77067

== ENCOUNTER 2021-10-07 15:09 | Emergency (ER) | payer OTHER ==
[2021-10-07 15:16] VITALS: BP 112/78; PULSE 99; RESP 20; TEMP 98.1
[2021-10-07] MEDS ORDERED: DIAZEPAM 5 MG/ML 2 ML INJ IM ONE (15:45)
[2021-10-07] MEDS ORDERED: MORPHINE SULFATE 4 MG/ML SYRINGE IM STA (15:45)
--- NOTE | 2021-10-07 15:49 | ED ---
Back Pain HPI - General Chief Complaint: Back Pain/Injury Stated Complaint: back pain Time Seen by Provider: 10/07/21 15:18 Source: patient Limitations: no limitations - History of Present Illness Initial Comments: 41-year-old female patient presents to the emergency department for evaluation of right low back pain. Patient states the pain started 3 days ago and has been intermittently worsening, at times debilitating pain. States that the pain is sharp and stabbing at times. She denies radiation to her legs. She denies any hematuria, dysuria, urinary frequency, urinary urgency. Denies any abdominal pain. Denies any fever or chills. She does have history of chronic low back pain for her pain is usually on the left side. She denies any known injuries. States the pain definitely worsens with movement. She has been taking her home medications without much relief. She denies any numbness or tingling to the lower extremities. Denies saddle anesthesia or loss of bowel or bladder control. - Related Data Home Medications Medication Instructions Recorded Confirmed Norgestimate-Ethinyl Estradiol 1 tab PO DAILY 01/18/17 05/01/17 [Ortho Tri-Cyclen Lo Tablet] HYDROcodone/APAP 10-325MG [[place] 1 tab PO TID PRN 05/01/17 05/01/17 10-325] Previous Rx's Medication Instructions Recorded Baclofen 10 mg PO TID #30 tab 01/18/17 Omeprazole 40 mg PO DAILY #14 capsule. 05/01/17 Ibuprofen [Motrin] 600 mg PO Q6HR PRN #20 tab 10/27/17 Orphenadrine [Norflex] 100 mg PO Q12H #10 tablet.er 10/27/17 predniSONE 50 mg PO DAILY #5 tab 10/27/17 Ondansetron [Zofran] 4 mg PO Q8HR PRN 2 Days #6 tab 04/03/18 Benzonatate [Tessalon Perles] 100 mg PO TID PRN #20 capsule 09/19/18 Cyclobenzaprine [Flexeril] 5 mg PO BID PRN #6 tablet 09/28/19 Cyclobenzaprine [Flexeril] 10 mg PO TID #15 tab 10/07/21 HYDROcodone/APAP 5-325MG [Buck[place] 5] 1 each PO Q6HR PRN #12 tab 10/07/21 Allergies Allergy/AdvReac Type Severity Reaction Status Date / Time No Known Allergies Allergy Verified 10/07/21 15:16 Review of Systems ROS Statement: Those systems with pertinent positive or pertinent negative responses have been documented in the HPI. ROS Other: All systems not noted in ROS Statement are negative. Past Medical History Past Medical History: No Reported History Additional Past Medical History / Comment(s): herniated disc, ulcer, endometriosis, fibroids, History of Any Multi-Drug Resistant Organisms: None Reported Past Surgical History: No Surgical Hx Reported Additional Past Surgical History / Comment(s): breast biopsy L breast Past Psychological History: No Psychological Hx Reported Smoking Status: Never smoker Past Alcohol Use History: None Reported Past Drug Use History: None Reported General Exam Limitations: no limitations General appearance: alert, in no apparent distress, other (This is a well- developed, well-nourished adult female in no acute distress.) Respiratory exam: Present: normal lung sounds bilaterally. Absent: respiratory distress, wheezes, rales, rhonchi, stridor Cardiovascular Exam: Present: regular rate, normal rhythm, normal heart sounds. Absent: systolic murmur, diastolic murmur, rubs, gallop, clicks GI/Abdominal exam: Present: soft, normal bowel sounds. Absent: distended, tenderness, guarding, rebound, rigid Extremities exam: Present: normal inspection, full ROM, normal capillary refill, other (Skin to the lower extremities is pink, warm, dry. Cap refill less than 3 seconds. Pedal and posttibial pulses are 2+). Absent: tenderness, pedal edema, joint swelling, calf tenderness Back exam: Present: normal inspection, paraspinal tenderness (Right paralumbar). Absent: vertebral tenderness Neurological exam: Present: alert, oriented X3, CN II-XII intact Psychiatric exam: Present: normal affect, normal mood Skin exam: Present: warm, dry, intact, normal color. Absent: rash Course Vital Signs 10/07/21 15:14 Temperature 98.1 F Pulse Rate 99 Respiratory 20 Rate Blood Pressure 112/78 O2 Sat by Pulse 99 Oximetry Medical Decision Making - Medical Decision Making 41-year-old female patient presented to the emergency department for evaluation of right lower back pain. Physical examination did reveal right paralumbar tenderness. Patient is neurovascularly and neurologically intact. She has no concerning symptoms for cauda equina. Pain worsens with movement. Symptoms seem consistent with mechanical low back pain. She'll be treated with muscle relaxer and pain medication which does have an MRI on Monday of her spine. She'll be discharged from with her doctor for recheck as soon as possible. Return parameters were discussed in detail. She verbalizes understanding and agrees with this plan. My attending during his Dr. Sherwood. Disposition Clinical Impression: Acute exacerbation of chronic low back pain Disposition: HOME SELF-CARE Condition: Good Instructions (If sedation given, give patient instructions): Acute Low Back Pain (ED) Additional Instructions: Continue range of motion exercises. Apply warm moist heat. Take medications as directed. Follow-up with the primary care physician for recheck in 1-2 days. Return for any new, worsening, or concerning symptoms. Prescriptions: Cyclobenzaprine [Flexeril] 10 mg PO TID #15 tab HYDROcodone/APAP 5-325MG [Buckingham 5] 1 each PO Q6HR PRN #12 tab PRN Reason: Pain Is patient prescribed a controlled substance at d/c from ED?: No Referrals: Vladimir Bazzi DO [Primary Care Provider] - 1-2 days Time of Disposition: 15:49
== END 2021-10-07 16:20 | disposition home or self-care (01) ==
LOC: EC 15:09
DX: M54.59 Other low back pain (principal)
CPT/HCPCS: 99283; 96372 ×2; J2270; J3360

== ENCOUNTER → 2022-03-15 | Outpatient (CLI) | payer OTHER ==
--- NOTE | 2022-03-15 12:46 | XR ---
Lumbar spine HISTORY: Pain 4 views the lumbar spine correlated prior exam 01/18/2017 Lumbar vertebral bodies show stable height, alignment, and bone mineralization. Intrauterine contrace ptive device is noted incidentally within the pelvis. There is spondylosis present at L1-2, T12-L1 with associated loss of disc height. Sclerosis in the po sterior elements is consistent with facet arthropathy change. IMPRESSION: Degenerative disc disease, facet arthropathy. No evident fracture or subluxation.
--- NOTE | 2022-03-15 12:47 | XR ---
Left hip HISTORY: Pain 2 views the left hip There is concentric joint space loss. Possible subchondral geode at the acetabular roof. Alignment is maintained. Probable bone island present in the left femoral head. No fracture or dislocation. IMPRESSION: Osteoarthritis.
== END | disposition home or self-care (01) ==
LOC: RADXRMAIN 12:08
PROVIDERS: ATTEND Family Medicine
DX: M51.26 Other intervertebral disc displacement, lumbar region (principal); M47.816 Spondylosis without myelopathy or radiculopathy, lumbar region; M16.12 Unilateral primary osteoarthritis, left hip
CPT/HCPCS: 72100; 73502

== ENCOUNTER 2022-06-17 13:27 | Emergency (ER) | payer OTHER ==
[2022-06-17 13:39] VITALS: RESP 18; TEMP 98.2
[2022-06-17] MEDS ORDERED: SODIUM CHLORIDE 0.9% 1,000 ML IV STA (16:01)
[2022-06-17] MEDS ORDERED: methylPREDNISolone SOD SUCCI 125 MG/2 ML VIAL IV STA (16:08)
[2022-06-17 16:10] LABS: Basophils # (A) 0.1 k/uL (0-0.2); Basophils % (A) 1 %; Eosinophils # (A) 0.2 k/uL (0-0.7); Eosinophils % (A) 2 %; HCT 46.8 % (34.0-46.0); HGB 16.3 gm/dL (11.4-16.0); Lymphocytes # (A) 1.4 k/uL (1.0-4.8); Lymphocytes % (A) 20 %; MCH 32.1 pg (25.0-35.0); MCHC 34.9 g/dL (31.0-37.0); Mean Platelet Volume 6.8; Monocytes # (A) 0.4 k/uL (0-1.0); Monocytes % (A) 6 %; Neutrophils # (A) 4.8 k/uL (1.3-7.7); Neutrophils % (A) 70 %; Platelet Count 316 k/uL (150-450); RBC 5.09 m/uL (3.80-5.40); RDW 12.4 % (11.5-15.5); WBC 6.9 k/uL (3.8-10.6)
[2022-06-17 16:24] LABS: INR 0.9 (<1.2); Partial Thromboplastin Time 24.4 sec (22.0-30.0); Prothrombin Time 9.8 sec (9.0-12.0)
[2022-06-17 16:25] LABS: African American GFR (CKD) >90 (>60 ml/min/1.73 sqM); Anion Gap 12 mmol/L; Blood Urea Nitrogen 14 mg/dL (7-17); Calcium 9.3 mg/dL (8.4-10.2); Carbon Dioxide 31 mmol/L (22-30); Chloride 93 mmol/L (98-107); Glucose 98 mg/dL (74-99); Non-African American GFR(CKD) 84 (>60 ml/min/1.73 sqM); Potassium 4.9 mmol/L (3.5-5.1); Sodium 136 mmol/L (137-145)
--- NOTE | 2022-06-17 16:28 | XR ---
EXAMINATION TYPE: XR chest 2V DATE OF EXAM: 06/17/2022 4:22 PM COMPARISON: Chest radiographs from 05/15/2020. TECHNIQUE: XR chest 2V Frontal and lateral views of the chest. CLINICAL INDICATION:Female, 42 years old with history of Chest Pain; FINDINGS: Lungs/Pleura: There is no evidence of pleural effusion, focal consolidation, or pneumothorax. Pulmonary vascularity: Unremarkable. Heart/mediastinum: Cardiomediastinal silhouette is unremarkable. Musculoskeletal: No acute osseous pathology. IMPRESSION: No acute cardiopulmonary disease/process.
[2022-06-17 17:32] VITALS: BP 114/64; PULSE 96
--- NOTE | 2022-06-17 17:43 | ED ---
General Adult HPI - General Chief complaint: Upper Respiratory Infection Stated complaint: Chest pain,COVID+ Time Seen by Provider: 06/17/22 15:55 Source: patient Mode of arrival: ambulatory Limitations: no limitations - History of Present Illness Initial comments: Patient is a 42-year-old female presents to the emergency department with a chief complaint of chest tightness. Patient states she had a positive COVID-19 test 5 days ago and today she woke up with chest tightness. States chest tightness was consistent throughout the day and worsened with coughing. States since arriving to the emergency department her chest no longer feels tight. Rep orts lightheadedness, sore throat, headache. Denies dizziness, shortness of breath, nausea, vomiting. Denies history of COPD and asthma. Denies use of immunosuppressive therapy. Denies history of cardiac disease, DVT, and PE. Family history of cardiac disease includes grandfather with atrial fibrillation. Denies past and present use of tobacco. - Related Data Home Medications Medication Instructions Recorded Confirmed DULoxetine HCL [Cymbalta] 60 mg PO DAILY 06/17/22 06/17/22 Gabapentin 600 mg PO Q8H PRN 06/17/22 06/17/22 Nortriptyline HCl [Pamelor] 75 mg PO HS 06/17/22 06/17/22 SUMAtriptan succinate [Imitrex] 25 - 50 mg PO BID PRN 06/17/22 06/17/22 Trubiotics 1 tab PO DAILY 06/17/22 06/17/22 Previous Rx's Medication Instructions Recorded predniSONE 50 mg PO DAILY #5 tab 06/17/22 Allergies Allergy/AdvReac Type Severity Reaction Status Date / Time No Known Allergies Allergy Verified 06/17/22 17:18 Review of Systems ROS Statement: Those systems with pertinent positive or pertinent negative responses have been documented in the HPI. ROS Other: All systems not noted in ROS Statement are negative. Past Medical History Past Medical History: No Reported History Additional Past Medical History / Comment(s): herniated disc, ulcer, endometriosis, fibroids, post concussion syndrome History of Any Multi-Drug Resistant Organisms: None Reported Past Surgical History: No Surgical Hx Reported Additional Past Surgical History / Comment(s): breast biopsy L breast Past Psychological History: No Psychological Hx Reported Smoking Status: Never smoker Past Alcohol Use History: None Reported Past Drug Use History: None Reported General Exam Limitations: no limitations General appearance: alert, in no apparent distress Head exam: Present: atraumatic, normocephalic, normal inspection Eye exam: Present: normal appearance, PERRL, EOMI. Absent: scleral icterus, conjunctival injection, periorbital swelling Neck exam: Present: normal inspection, full ROM Respiratory exam: Present: normal lung sounds bilaterally. Absent: respiratory distress, wheezes, rales, rhonchi, stridor Cardiovascular Exam: Present: normal rhythm, tachycardia, normal heart sounds. Absent: regular rate, systolic murmur, diastolic murmur, rubs, gallop, clicks Neurological exam: Present: alert, oriented X3, CN II-XII intact Psychiatric exam: Present: normal affect, normal mood Skin exam: Present: warm, dry, intact, normal color. Absent: rash Course Vital Signs 06/17/22 06/17/22 13:35 17:31 Temperature 98.2 F Pulse Rate 131 H 96 Respiratory 18 18 Rate Blood Pressure 112/83 114/64 O2 Sat by Pulse 96 100 Oximetry Medical Decision Making - Medical Decision Making This is a 42-year-old with COVID-19 infection presenting with chest tightness. Patient well-appearing and in no apparent distress. Afebrile. Patient coughing during evaluation which does sound somewhat productive. No wheezing or other abnormal lung sounds. EKG shows sinus tachycardia with no evidence of acute ischemia. Laboratory studies obtained and are relatively unremarkable. Troponin is within normal limits. COVID-19 is detected. Chest x-ray negative for acute process. Patient given Solu-Medrol for acute bronchitis. Results discussed with patient and her family. This is a well-appearing patient, no hypoxia, no fever, no wheezing. Little risk factors for ACS. No active chest pain. I suspect chest tightness related to acute bronchitis from COVID-19 infection. Discussed Paxlovid risks versus benefits and patient declines. Patient will be discharged with prednisone prescription. Return parameters discussed. Dr. Clark is my attending. - Lab Data Result diagrams: 06/17/22 16:03 06/17/22 16:03 Lab Results 06/17/22 06/17/22 06/17/22 Range/Units 16:03 16:03 16:03 WBC 6.9 (3.8-10.6) k/uL RBC 5.09 (3.80-5.40) m/uL Hgb 16.3 H (11.4-16.0) gm/dL Hct 46.8 H (34.0-46.0) % MCV 92.0 (80.0-100.0) fL MCH 32.1 (25.0-35.0) pg MCHC 34.9 (31.0-37.0) g/dL RDW 12.4 (11.5-15.5) % Plt Count 316 (150-450) k/uL MPV 6.8 Neutrophils % 70 % Lymphocytes % 20 % Monocytes % 6 % Eosinophils % 2 % Basophils % 1 % Neutrophils # 4.8 (1.3-7.7) k/uL Lymphocytes # 1.4 (1.0-4.8) k/uL Monocytes # 0.4 (0-1.0) k/uL Eosinophils # 0.2 (0-0.7) k/uL Basophils # 0.1 (0-0.2) k/uL PT 9.8 (9.0-12.0) sec INR 0.9 (<1.2) APTT 24.4 (22.0-30.0) sec D-Dimer 0.49 (<0.60) mg/L FEU Sodium 136 L (137-145) mmol/L Potassium 4.9 (3.5-5.1) mmol/L Chloride 93 L (98-107) mmol/L Carbon Dioxide 31 H (22-30) mmol/L Anion Gap 12 mmol/L BUN 14 (7-17) mg/dL Creatinine 0.87 (0.52-1.04) mg/dL Est GFR (CKD-EPI)AfAm >90 (>60 ml/min/1.73 sqM) Est GFR (CKD-EPI)NonAf 84 (>60 ml/min/1.73 sqM) Glucose 98 (74-99) mg/dL Calcium 9.3 (8.4-10.2) mg/dL Magnesium 2.0 (1.6-2.3) mg/dL Troponin I (0.000-0.034) ng/mL Coronavirus (PCR) (Not Detectd) 06/17/22 06/17/22 Range/Units 16:03 16:08 WBC (3.8-10.6) k/uL RBC (3.80-5.40) m/uL Hgb (11.4-16.0) gm/dL Hct (34.0-46.0) % MCV (80.0-100.0) fL MCH (25.0-35.0) pg MCHC (31.0-37.0) g/dL RDW (11.5-15.5) % Plt Count (150-450) k/uL MPV Neutrophils % % Lymphocytes % % Monocytes % % Eosinophils % % Basophils % % Neutrophils # (1.3-7.7) k/uL Lymphocytes # (1.0-4.8) k/uL Monocytes # (0-1.0) k/uL Eosinophils # (0-0.7) k/uL Basophils # (0-0.2) k/uL PT (9.0-12.0) sec INR (<1.2) APTT (22.0-30.0) sec D-Dimer (<0.60) mg/L FEU Sodium (137-145) mmol/L Potassium (3.5-5.1) mmol/L Chloride (98-107) mmol/L Carbon Dioxide (22-30) mmol/L Anion Gap mmol/L BUN (7-17) mg/dL Creatinine (0.52-1.04) mg/dL Est GFR (CKD-EPI)AfAm (>60 ml/min/1.73 sqM) Est GFR (CKD-EPI)NonAf (>60 ml/min/1.73 sqM) Glucose (74-99) mg/dL Calcium (8.4-10.2) mg/dL Magnesium (1.6-2.3) mg/dL Troponin I <0.012 (0.000-0.034) ng/mL Coronavirus (PCR) Detected A (Not Detectd) Disposition Clinical Impression: COVID-19, Acute bronchitis Disposition: HOME SELF-CARE Condition: Good Instructions (If sedation given, give patient instructions): Acute Bronchitis (ED), COVID-19 (Coronavirus Disease 2019) (ED) Additional Instructions: Take medication as directed. Quarantine at home for 5 days. Follow-up with primary care provider in one to 2 days. Emergency department experience new, concerning, or worsening symptoms. Prescriptions: predniSONE 50 mg PO DAILY #5 tab Is patient prescribed a controlled substance at d/c from ED?: No Referrals: Vladimir Bazzi DO [Primary Care Provider] - 1-2 days Time of Disposition: 17:43
== END 2022-06-17 18:08 | disposition home or self-care (01) ==
LOC: EC 13:27
DX: U07.1 COVID-19 (principal)
CPT/HCPCS: 36415; 93005; 85379; 80048; 83735; 84484; 85025; 85610; 85730; 87635; 71046; 99284; 96374; 96361; J2930

== ENCOUNTER → 2022-09-09 | Outpatient (CLI) | payer OTHER ==
--- NOTE | 2022-09-12 08:32 | MM ---
Reason for Exam: Screening (asymptomatic). Last screening mammogram was performed 12 month(s) ago. Patient History: Menarche at age 14. First Full-Term at age 22. Currently using Hormonal Contraceptives, for 2 months. 2010, Benign Ultrasound-Guided Core Biopsy on the left side. Maternal aunt had breast cancer. Risk Values: Malena 5 year model risk: 0.8%. NCI Lifetime model risk: 11.0%. Prior Study Comparison: 03/15/2011 Bilateral Diagnostic Mammogram, [facility]. 06/20/2018 Bilateral Screening Mammogram, [facility]. 09/08/2021 Bilateral Screening Mammogram, [facility]. Tissue Density: The breast tissue is heterogeneously dense. This may lower the sensitivity of mammography. Findings: Analyzed By CAD. There is no suspicious group of microcalcifications or new suspicious mass in either breast. Overall Assessment: Negative, BI-RAD 1 Management: Screening Mammogram of both breasts in 1 year. A clinical breast exam by your physician is recommended on an annual basis and results should be correlated with mammographic findings. Electronically signed and approved by: Ankur Daugherty D.O.
== END | disposition home or self-care (01) ==
LOC: RADMAMWWP 11:14
PROVIDERS: ATTEND Family Medicine
DX: Z12.31 Encounter for screening mammogram for malignant neoplasm of breast (principal); Z80.3 Family history of malignant neoplasm of breast
CPT/HCPCS: 77063; 77067

== ENCOUNTER 2023-03-29 13:39 | Inpatient (IN) | payer MEDICAID, OTHER ==
[2023-03-29] MEDS ORDERED: HYDROcodone/APAP 5-325MG 1 EACH TAB PO STA (14:35)
[2023-03-29] MEDS ORDERED: KETOROLAC 15 MG/ML 1 ML VIAL IM STA (14:35)
[2023-03-29] MEDS ORDERED: LORazepam 0.5 MG TAB PO STA (14:35)
--- NOTE | 2023-03-29 14:49 | ED ---
General Adult HPI - General Chief complaint: Anxiety Stated complaint: Panic Attack Time Seen by Provider: 03/29/23 13:42 Source: patient, EMS, RN notes reviewed, old records reviewed Mode of arrival: EMS - History of Present Illness Initial comments: Patient is a 42-year-old female presents emergency Department with multiple complaints. Is having acute on chronic left hip pain. States it is chronic but states she will be left hip wrong urodynamic it worse. She is also endorsing mental stress. States she is anxious. Is unwilling to discuss suicidal, homicidal ideations, attempts, plans with myself. Wishes to be evaluated by psychiatry. She is tearful. No new trauma other than moving around with her left hip. Denies any falls or obvious injuries. Presents for further evaluation at this time. Denies drug use. - Related Data Home Medications Medication Instructions Recorded Confirmed DULoxetine HCL [Cymbalta] 60 mg PO DAILY 06/17/22 03/29/23 Gabapentin 1,200 mg PO HS 06/17/22 03/29/23 Nortriptyline HCl [Pamelor] 100 mg PO HS 06/17/22 03/29/23 DULoxetine HCL [Cymbalta] 30 mg PO DAILY 03/29/23 03/29/23 Erenumab-Aooe [Aimovig 70 mg SQ QMONTHLY 03/29/23 03/29/23 Autoinjector] Ferrous Sulfate [Feosol] 325 mg PO HS 03/29/23 03/29/23 L.acidoph,Paracasei, B.lactis 1 cap PO DAILY 03/29/23 03/29/23 [Probiotic] Melatonin 5 mg PO HS 03/29/23 03/29/23 Multivitamins, Thera [Multivitamin 1 tab PO DAILY 03/29/23 03/29/23 (formulary)] SUMAtriptan succinate [Imitrex] 50 mg PO BID PRN 03/29/23 03/29/23 Allergies Allergy/AdvReac Type Severity Reaction Status Date / Time No Known Allergies Allergy Verified 03/29/23 15:11 Review of Systems ROS Statement: Those systems with pertinent positive or pertinent negative responses have been documented in the HPI. Review of Systems: CONST: Denies fever EYES: Denies blurry vision ENT: Denies nasal congestion C/V: Denies Chest pain RESP: Denies shortness of breath GI: Denies abdominal pain : Denies dysuria SKIN: Denies rash. MSK: Endorses chronic left hip pain NEURO: Denies headache PSYCH: Endorses anxiety ROS Other: All systems not noted in ROS Statement are negative. Past Medical History Past Medical History: No Reported History Additional Past Medical History / Comment(s): herniated disc, ulcer, endometriosis, fibroids, post concussion syndrome History of Any Multi-Drug Resistant Organisms: None Reported Past Surgical History: No Surgical Hx Reported Additional Past Surgical History / Comment(s): breast biopsy L breast Past Psychological History: No Psychological Hx Reported Smoking Status: Never smoker Past Alcohol Use History: None Reported Past Drug Use History: None Reported General Exam - General Exam Comments Initial Comments: General: She is tearful, anxious. HEAD: Normal with no signs of head trauma. EYES: PERRLA, EOMI, conjunctiva normal, no discharge. ENT: Hearing grossly intact, normal oropharynx. RESPIRATORY: Clear breath sounds bilaterally. No wheezes, rales, or rhonchi. C/V: Regular rate and rhythm. S1 and S2 auscultated, no edema, peripheral pulses 2+ and intact throughout ABD: Abd is soft, nontender, nondistended EXT: Normal range of motion, no obvious deformity. Pain with movement of the left hip.. On palpation of the lateral left hip. No shortening. Neurovascular intact. SKIN: No rashes or lesions observed on exposed skin. NEURO: Alert and oriented 4. No focal deficits. Course Vital Signs 03/29/23 13:55 Temperature 99.0 F Pulse Rate 96 Respiratory 24 Rate Blood Pressure 124/86 O2 Sat by Pulse 97 Oximetry Medical Decision Making - Medical Decision Making Was pt. sent in by a medical professional or institution (, PA, CERAMIC RESTORER, urgent care, hospital, or correction...) When possible be specific @ -No Did you speak to anyone other than the patient for history (EMS, parent, family, police, friend...)? What history was obtained from this source @ -No Did you review nursing and triage notes (agree or disagree)? Why? @ -I reviewed and agree with nursing and triage notes Were old charts reviewed (outside hosp., previous admission, EMS record, old EKG, old radiological studies, urgent care reports/EKG's, correction records)? Report findings @ -No old charts were reviewed Differential Diagnosis (chest pain, altered mental status, abdominal pain women, abdominal pain men, vaginal bleeding, weakness, fever, dyspnea, syncope, hea dache, dizziness, GI bleed, back pain, seizure, CVA, palpatations, mental health, musculoskeletal)? @ -Differential Mental Health Depression, anxiety, bipolar, psychosis, schizophrenia, borderline personality, situational depression, adjustment disorder, behavioral disorder, brain tumor, malingering, substance abuse, encephalopathy, medication reaction, dementia, hypothyroidism, degenerative neurologic disorder, lupus.... This is not meant to be all-inclusive list Differential Musculoskeletal Muscular strain, contusion, ligament sprain, fracture, arthritis, septic arthritis, bursitis, cellulitis, muscle spasm, nerve compression, DVT, arterial occlusion, herpes zoster, electrolyte abnormality, tumor.... This is not meant to be in all inclusive list EKG interpreted by me (3pts min.). @ -As above X-rays interpreted by me (1pt min.). @ -Pending CT interpreted by me (1pt min.). @ -None done U/S interpreted by me (1pt. min.). @ -None done What testing was considered but not performed or refused? (CT, X-rays, U/S, labs)? Why? @ -None What meds were considered but not given or refused? Why? @ -None Did you discuss the management of the patient with other professionals (professionals i.e. , PA, CERAMIC RESTORER, lab, RT, psych nurse, social work job titles, satellite specialist, teacher, special officer, director of casework services)? Give summary @ -No Was smoking cessation discussed for >3mins.? @ -No Was critical care preformed (if so, how long)? @ -No Were there social determinants of health that impacted care today? How? (Homelessness, low income, unemployed, alcoholism, drug addiction, transportation, low edu. Level, literacy, decrease access to med. care, residential, rehab)? @ -No Was there de-escalation of care discussed even if they declined (Discuss DNR or withdrawal of care, Hospice)? DNR status @ -No What co-morbidities impacted this encounter? (DM, HTN, Smoking, COPD, CAD, Cancer, CVA, ARF, Chemo, Hep., AIDS, mental health diagnosis, sleep apnea, morbid obesity)? @ -Anxiety Was patient admitted / discharged? Hospital course, mention meds given and route, prescriptions, significant lab abnormalities, going to OR and other pertinent info. @ -Based on the patient's presentation and physical exam I'm concerned for anxiety for the patient, and she is requesting EPS evaluation. She was placed in green scrubs. BAT is 0. UDS is pending. She is requesting evaluation of the left hip which is acute on chronic pain. We'll obtain x-rays. She'll be sent likely treated with a [place], Toradol, Ativan. Vital signs within acceptable limits. She was in agreement with this plan. Care is assumed by Dr. Juárez. Undiagnosed new problem with uncertain prognosis? @ -No Drug Therapy requiring intensive monitoring for toxicity (Heparin, Nitro, Insuli n, Cardizem)? @ -No Were any procedures done? @ -No Diagnosis/symptom? @ -Encounter for psychiatric evaluation, anxiety, left hip pain Acute, or Chronic, or Acute on Chronic? @ -Acute on chronic Uncomplicated (without systemic symptoms) or Complicated (systemic symptoms)? @ -Complicated Side effects of treatment? @ -No Exacerbation, Progression, or Severe Exacerbation? @ -No Poses a threat to life or bodily function? How? (Chest pain, [place], [place], pneumonia, PE, COPD, DKA, ARF, appy, cholecystitis, CVA, Diverticulitis, Homicidal, Rudolph icidal, threat to staff... and all critical care pts) @ -Yes - Lab Data Result diagrams: 03/30/23 10:02 03/30/23 10:02 Lab Results 03/29/23 03/29/23 03/29/23 Range/Units 14:34 20:00 20:00 Urine Color Light Red Urine Appearance Cloudy H (Clear) Urine pH 6.5 (5.0-8.0) Ur Specific [place] 1.032 (1.001-1.035) Urine Protein 1+ H (Negative) Urine Glucose (UA) Negative (Negative) Urine Ketones Trace H (Negative) Urine Blood Trace H (Negative) Urine Nitrite Negative (Negative) Urine Bilirubin Negative (Negative) Urine Urobilinogen <2.0 (<2.0) mg/dL Ur Leukocyte Esterase Negative (Negative) Urine RBC 3 (0-5) /hpf Urine WBC 1 (0-5) /hpf Ur Squamous Epith Cells 3 (0-4) /hpf Hyaline Casts 1 (0-2) /lpf Urine Mucus Occasional H (None) /hpf Urine HCG, Qual Not Detected (Not Detectd) Urine Opiates Screen Detected H (NotDetected) Ur Oxycodone Screen Not Detected (NotDetected) Urine Methadone Screen Not Detected (NotDetected) Ur Propoxyphene Screen Not Detected (NotDetected) Ur Barbiturates Screen Not Detected (NotDetected) U Tricyclic Antidepress Detected H (NotDetected) Ur Phencyclidine Scrn Not Detected (NotDetected) Ur Amphetamines Screen Not Detected (NotDetected) U Methamphetamines Scrn Not Detected (NotDetected) U Benzodiazepines Scrn Detected H (NotDetected) Urine Cocaine Screen Not Detected (NotDetected) U Marijuana (THC) Screen Not Detected (NotDetected) Influenza Type A (PCR) (Not Detectd) Influenza Type B (PCR) (Not Detectd) RSV (PCR) (Not Detectd) SARS-CoV-2 (PCR) (Not Detectd) 03/29/23 Range/Units 20:44 Urine Color Urine Appearance (Clear) Urine pH (5.0-8.0) Ur Specific [place] (1.001-1.035) Urine Protein (Negative) Urine Glucose (UA) (Negative) Urine Ketones (Negative) Urine Blood (Negative) Urine Nitrite (Negative) Urine Bilirubin (Negative) Urine Urobilinogen (<2.0) mg/dL Ur Leukocyte Esterase (Negative) Urine RBC (0-5) /hpf Urine WBC (0-5) /hpf Ur Squamous Epith Cells (0-4) /hpf Hyaline Casts (0-2) /lpf Urine Mucus (None) /hpf Urine HCG, Qual (Not Detectd) Urine Opiates Screen (NotDetected) Ur Oxycodone Screen (NotDetected) Urine Methadone Screen (NotDetected) Ur Propoxyphene Screen (NotDetected) Ur Barbiturates Screen (NotDetected) U Tricyclic Antidepress (NotDetected) Ur Phencyclidine Scrn (NotDetected) Ur Amphetamines Screen (NotDetected) U Methamphetamines Scrn (NotDetected) U Benzodiazepines Scrn (NotDetected) Urine Cocaine Screen (NotDetected) U Marijuana (THC) Screen (NotDetected) Influenza Type A (PCR) Not Detected (Not Detectd) Influenza Type B (PCR) Not Detected (Not Detectd) RSV (PCR) Not Detected (Not Detectd) SARS-CoV-2 (PCR) Not Detected (Not Detectd) - EKG Data -: EKG Interpreted by Me EKG Comments: 12-lead Electrocardiogram Interpretation Note EKG was reviewed and interpreted by myself. 12-lead ECG performed at 1349 is interpreted by me as revealing sinus tachycardia at a rate of 107 beats per minute. [place] is normal. GA interval is 137 ms, QRS duration is 84 ms, QTc is 387 ms.. There were no ST or T wave abnormalities to suggest myocardial ischemia or injury. R wave progression across the precordium was satisfactory. By my interpretation this EKG is non-diagnostic for acute ischemia. Disposition Clinical Impression: Acute anxiety, Encounter for psychiatric assessment, Chronic pain Disposition: ADMITTED IP TO THIS HOSP Condition: Stable
--- NOTE | 2023-03-29 15:14 | XR ---
EXAMINATION TYPE: XR Hip LT and AP Pelvis DATE OF EXAM: 03/29/2023 3:09 PM INDICATION: Patient age:Female; 42 years old; Reason for study: pain; PHH. COMPARISON: Left hip radiograph 09/13/2022, 03/15/2022 TECHNIQUE: The left hip was examined in the frontal and lateral projections and a AP pelvis. FINDINGS: No evidence of any acute osseous pathology, joint dislocation, or soft tissue swelling. Sup erior and medial joint space narrowing with acetabular sclerosis involving the left hip. Similar scar ring focus in the left femoral head likely representing a benign bone island. Multiple pelvic phlebol iths. IUD demonstrated within the pelvis. IMPRESSION: 1. No acute osseous pathology. 2. Mild osteoarthritic changes of the left hip redemonstrated.
[2023-03-29 20:34] LABS: Amphetamine Screen,Urine Not Detected (NotDetected); Barbiturate Screen,Urine Not Detected (NotDetected); Benzodiazepines Screen,Urine Detected (NotDetected); Cocaine Screen,Urine Not Detected (NotDetected); Methadone Screen, Urine Not Detected (NotDetected); Opiate Screen,Urine Detected (NotDetected); Oxycodone Screen, Urine Not Detected (NotDetected); Phencyclidine Screen,Urine Not Detected (NotDetected); Tricyclic Antidepressant,Urine Detected (NotDetected); Urn Cannabinoid Scrn Not Detected (NotDetected)
[2023-03-29] MEDS ORDERED: hydrOXYzine HCL 25 MG TAB PO PRN (21:30)
[2023-03-29] MEDS ORDERED: MAG HYDROX/AL HYDROX/SIMETH 30 ML CUP PO PRN (21:30)
[2023-03-29] MEDS ORDERED: ACETAMINOPHEN TAB 325 MG TAB PO PRN (21:30)
[2023-03-29] MEDS ORDERED: MELATONIN 5 MG TABLET PO PRN (21:41)
[2023-03-29] MEDS ORDERED: NORTRIPTYLINE 25 MG CAP PO SCH (22:00)
[2023-03-29 22:32] LABS: Appearance,Urine Cloudy (Clear); Bilirubin,Urine Negative (Negative); Blood,Urine Trace (Negative); Color,Urine Light Red; Glucose,Urine (UA) Negative (Negative); Hyaline Casts,Urine 1 /lpf (0-2); Ketones,Urine Trace (Negative); Leukocyte Esterase,Urine Negative (Negative); Mucus,Urine Occasional /hpf; Nitrite,Urine Negative (Negative); PH, Urine 6.5 (5.0-8.0); Protein,Urine 1+ (Negative); RBC,Urine 3 /hpf (0-5); Specific Gravity,Urine 1.032 (1.001-1.035); Squamous Epithelial Cell,Urine 3 /hpf (0-4); Urobilinogen,Urine <2.0 mg/dL (<2.0); WBC,Urine 1 /hpf (0-5)
[2023-03-29] MEDS: GABAPENTIN 400 MG CAP PO SCH (22:55)
[2023-03-29] MEDS: IBUPROFEN 600 MG TAB PO PRN (23:30)
--- NOTE | 2023-03-30 04:49 | P.PN ---
Progress Note - Text Progress Note Date: 03/30/23 new admit, very stressed and depressed , just wanted to sleep tonight and not be disturbed, will re evaluate tomorrow
[2023-03-30] MEDS: MULTIVITAMINS, THERA 1 EACH TAB PO SCH (08:07)
[2023-03-30] MEDS: GABAPENTIN 300 MG CAP PO SCH (08:07)
[2023-03-30] MEDS: SUMAtriptan succinate 50 MG TAB PO PRN (08:33)
[2023-03-30] MEDS ORDERED: DULoxetine HCL 30 MG CAPSULE.DR PO SCH (09:00)
[2023-03-30 10:22] LABS: Basophils % (A) 1 %; Eosinophils # (A) 0.1 k/uL (0-0.7); Eosinophils % (A) 1 %; HCT 43.2 % (34.0-46.0); HGB 14.5 gm/dL (11.4-16.0); Lymphocytes # (A) 1.7 k/uL (1.0-4.8); Lymphocytes % (A) 31 %; MCH 31.3 pg (25.0-35.0); MCHC 33.6 g/dL (31.0-37.0); Mean Platelet Volume 6.7; Monocytes # (A) 0.3 k/uL (0-1.0); Monocytes % (A) 5 %; Neutrophils # (A) 3.4 k/uL (1.3-7.7); Neutrophils % (A) 61 %; Platelet Count 351 k/uL (150-450); RBC 4.65 m/uL (3.80-5.40); RDW 12.4 % (11.5-15.5); WBC 5.6 k/uL (3.8-10.6)
[2023-03-30 10:42] LABS: ALT 24 U/L (4-34); AST 28 U/L (14-36); African American GFR (CKD) >90 (>60 ml/min/1.73 sqM); Albumin 4.6 g/dL (3.5-5.0); Alkaline Phosphatase 80 U/L (38-126); Anion Gap 11 mmol/L; Bilirubin, Delta 0.1 mg/dL (0.0-0.2); Bilirubin,Unconjugated 1.6 mg/dL (0.0-1.1); Blood Urea Nitrogen 14 mg/dL (7-17); Calcium 9.1 mg/dL (8.4-10.2); Carbon Dioxide 25 mmol/L (22-30); Chloride 101 mmol/L (98-107); Glucose 105 mg/dL (74-99); Non-African American GFR(CKD) 86 (>60 ml/min/1.73 sqM); Potassium 4.5 mmol/L (3.5-5.1); Sodium 137 mmol/L (137-145); Total Bilirubin 1.7 mg/dL (0.2-1.3); Total Protein 7.3 g/dL (6.3-8.2)
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
[2023-03-30] MEDS: LITHIUM CARBONATE 150 MG CAP PO SCH ×2 (14:44→20:39)
[2023-03-30] MEDS: NORTRIPTYLINE 25 MG CAP PO SCH ×2 (16:26→20:39)
[2023-03-30 20:05] LABS: Chol/HDL Ratio 3.94 Ratio; LDL Cholesterol,Calculated 152.1 mg/dL (0.0-131.0)
[2023-03-30] MEDS: FERROUS SULFATE 325 MG TAB PO SCH (20:39)
[2023-03-30] MEDS: GABAPENTIN 400 MG CAP PO SCH (20:39)
[2023-03-30] MEDS: DULoxetine HCL 30 MG CAPSULE.DR PO SCH (20:39)
[2023-03-30] MEDS: MELATONIN 5 MG TABLET PO SCH (21:57)
[2023-03-31] MEDS: LITHIUM CARBONATE 150 MG CAP PO SCH ×2 (08:40→20:25)
[2023-03-31] MEDS: MULTIVITAMINS, THERA 1 EACH TAB PO SCH (08:41)
[2023-03-31] MEDS: NORTRIPTYLINE 25 MG CAP PO SCH ×2 (08:41→20:24)
[2023-03-31] MEDS: DULoxetine HCL 30 MG CAPSULE.DR PO SCH ×2 (08:41→20:24)
[2023-03-31] MEDS: GABAPENTIN 300 MG CAP PO SCH (08:42)
[2023-03-31] MEDS: IBUPROFEN 600 MG TAB PO PRN (08:42)
--- NOTE | 2023-03-31 11:14 | P.PN ---
Progress Note - Text Progress Note Date: 03/31/23 Interval Hx: Patient was seen today wandering the hallways after group and was agreeable to speak to fiction and nonfiction writer prose in the office. She continues to have a constricted affect today and was focusing on her leg pain which is chronic. Patient states that she feels a little bit better however still feeling fairly depressed and anxious. States that she is still dealing with significant pain and was fairly focused on that during the interview. She claims that she had broken sleep last night, we spoke about medications that might help her with sleep and she is agreeable to try trazodone. We continued to speak about other medications and tapering of the nortriptyline. She is denying any side effects at this time. She claims that her appetite is fair and has been trying to go to some groups. She was asking about partial hospitalization programs upon discharge. At this time she is denying any homicidal ideations intent or plan. Denying any auditory or visual hallucinations. She did state that she is still having thoughts of "not being here" however claims that she would not actively harm herself. Mental status examination: General Appearance: Patient appears to be tall, walking slowly, stated age is alert, directable, and attempts to cooperate. Patient appears to have improving hygiene and grooming. Behavior: Patient is seated without any agitated behavior. Spring, improving Speech: Patient's speech is fluent and nonpressured. Monotone, improving Mood/Affect: Patient reports their mood is depressed and anxious, affect is congruent Suicidality/Homicidality: Patient denies having any homicidal ideation intent or plan. Denies any active suicidal ideations ever does have some passive suicidal thoughts. Perceptions: Patient denies any visual hallucinations and denies any auditory hallucinations Though content/process: There is no evidence of any delusional thought content and thought process is linear and goal-directed. Spring. Focused on her symptoms and to pain. Memory and concentration: AOX3, grossly intact for the purposes of this session Judgment and insight: poor, improving mildly IMPRESSIONS: Major depressive disorder without psychotic features anxiety disorder unspecified pain disorder with psychological factors PLAN: -Patient is admitted under voluntary status to [facility] for stabilization of psychiatric symptoms and safety. Patient has signed adult voluntary form and medication consent and is placed in patient's chart. -Medications : increase Cymbalta 30 mg QHS + 60 mg daily for mood/anxiety, decrease and titrate down on the nortriptyline 25 mg 3 times a day and continuing tapering off. continue lithium 150 mg bid for mood adjunct/suicidal thoughts. added trazodone 50 mg qhs for insomnia/mood. melatonin 10 mg qhs for sleep -Ativan and Haldol PRN for agitation/aggression -NRT - not needed as patent does not smoke -SW on board for discharge planning. Encourage patient to participate in groups to work on coping skills. likely discharge monday vs monday if patient is improving. Plan will be to have patient do an [facility] with [facility] to access more therapy options and groups/programs for socialization and coping.
[2023-03-31] MEDS: LACTOBACILLUS ACIDOPHILUS/PECT 1 EACH CAPSULE PO SCH (13:57)
[2023-03-31] MEDS: GABAPENTIN 400 MG CAP PO SCH (20:21)
[2023-03-31] MEDS: traZODone HCL 50 MG TAB PO SCH (20:23)
[2023-03-31] MEDS: FERROUS SULFATE 325 MG TAB PO SCH (20:23)
[2023-03-31] MEDS: MELATONIN 5 MG TABLET PO SCH (21:30)
[2023-04-01] MEDS: SUMAtriptan succinate 50 MG TAB PO PRN ×2 (01:40→11:56)
[2023-04-01] MEDS ORDERED: HYDROcodone/APAP 5-325MG 1 EACH TAB PO PRN (04:06)
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
[2023-04-01] MEDS: DULoxetine HCL 60 MG CAPSULE.DR PO SCH (08:21)
[2023-04-01] MEDS: LACTOBACILLUS ACIDOPHILUS/PECT 1 EACH CAPSULE PO SCH (08:21)
[2023-04-01] MEDS: LITHIUM CARBONATE 150 MG CAP PO SCH ×2 (08:21→20:42)
[2023-04-01] MEDS: NORTRIPTYLINE 25 MG CAP PO SCH ×2 (08:22→20:42)
[2023-04-01] MEDS: MULTIVITAMINS, THERA 1 EACH TAB PO SCH (08:22)
[2023-04-01] MEDS: GABAPENTIN 300 MG CAP PO SCH (08:23)
[2023-04-01] MEDS: BENZOCAINE/MENTHOL LOZENG 1 EACH LOZENGE MUCOUS MEM PRN (15:52)
--- NOTE | 2023-04-01 17:16 | P.PN ---
Progress Note - Text Progress Note Date: 04/01/23 Interval history: Patient was seen resting in her room and was directable and agreeable to speak with movie writer. She is somatically preoccupied, complains of multiple ailments (sore throat - asks for cough drops, dry eyes - asks for her eye drops, dental floss - would like permission to floss her teeth, migraines - would like her Imitrex increased to her home dose of 100 mg BID PRN). She appears anxious, and reports her mood is "exhausted and in pain". However, she appears to ambulate without difficulty and without any indication of severe pain. She tends to frown with deep frown lines in the forehead which likely contributes to her headaches. At this time, patient denies any suicidal or homicidal ideation, intent or plan. Denies any auditory or visual hallucinations. Patient denies any side effects from the medications and has been compliant with meds. Mental status exam: General Appearance: Patient appears to be stated age is alert, directable, and cooperative. Behavior: No agitated behavior. Patient is calm and directable, but somatically preoccupied with multiple requests from staff. Speech: Patient's speech is fluent and non-pressured. Mood/Affect: Mood is "exhausted and in pain", affect is congruent, anxious and constricted. Suicidality/Homicidality: Patient denies having any suicidal or homicidal ideation intent or plan. Perceptions: Patient denies any auditory or visual hallucinations. Though content/process: There is no evidence of any delusional thought content and thought process is ruminative; somatically preoccupied. Memory and concentration: AOX3, grossly intact for the purposes of this session Judgment and insight: improving mildly Assessment/Plan: Continue with current diagnosis. Patient continues to meet criteria for inpatient psychiatric admission for symptom stabilization and safety. Medications: Decrease Nortriptyline to 25 mg QHS starting tomorrow to minimize risk of serotonin syndrome on her multiple medications. Increase Imitrex to 100 mg BID PRN for migraines - patient reports this is her home dose. Orders written to allow patient to floss and use her home saline eye drops with staff supervision. Follow-up with neurology as an outpatient for treatment of headaches including injections. Monitor for medication compliance and for any psychotropic medication side effects. Will continue to monitor ongoing response to treatment. Encouraged participation in milieu.
[2023-04-01] MEDS: traZODone HCL 50 MG TAB PO SCH (20:42)
[2023-04-01] MEDS: FERROUS SULFATE 325 MG TAB PO SCH (20:42)
[2023-04-01] MEDS: GABAPENTIN 400 MG CAP PO SCH (20:45)
[2023-04-01] MEDS: MELATONIN 5 MG TABLET PO SCH (20:46)
[2023-04-01] MEDS: DULoxetine HCL 30 MG CAPSULE.DR PO SCH (20:46)
[2023-04-02] MEDS: DULoxetine HCL 60 MG CAPSULE.DR PO SCH (08:53)
[2023-04-02] MEDS: LACTOBACILLUS ACIDOPHILUS/PECT 1 EACH CAPSULE PO SCH (08:53)
[2023-04-02] MEDS: GABAPENTIN 300 MG CAP PO SCH (08:53)
[2023-04-02] MEDS: LITHIUM CARBONATE 150 MG CAP PO SCH ×2 (08:53→21:15)
[2023-04-02] MEDS: MULTIVITAMINS, THERA 1 EACH TAB PO SCH (08:53)
[2023-04-02] MEDS: SUMAtriptan succinate 50 MG TAB PO PRN (08:56)
--- NOTE | 2023-04-02 18:08 | P.PN ---
Progress Note - Text Progress Note Date: 04/02/23 Interval history: Patient was seen coloring in her room and was directable and agreeable to speak with screenplay writer. She reports her mood is "So exhausted" and "really tired". She reports she slept well last night. She reports frustration over her 20 year old son (who was also her caregiver) wanting to live in [place] with his father. She continues to exhibit a poor frustration tolerance and report multiple somatic complaints, but objectively does not appear to be in pain. At this time, patient denies any suicidal or homicidal ideation, intent or plan. Denies any auditory or visual hallucinations. Patient denies any side effects from the medications and has been compliant with meds. Mental status exam: General Appearance: Patient appears to be stated age is alert, directable, and cooperative. Behavior: No agitated behavior. Patient is calm and directable, but somatically preoccupied with multiple requests from staff. Speech: Patient's speech is fluent and non-pressured. Mood/Affect: Mood is "so exhausted", affect is constricted. Suicidality/Homicidality: Patient denies having any suicidal or homicidal ideation intent or plan. Perceptions: Patient denies any auditory or visual hallucinations. Though content/process: There is no evidence of any delusional thought content and thought process is ruminative; somatically preoccupied. Memory and concentration: AOX3, grossly intact for the purposes of this session Judgment and insight: improving mildly Assessment/Plan: Continue with current diagnosis. Patient continues to meet criteria for inpatient psychiatric admission for symptom stabilization and safety. Medications: Decrease Nortriptyline 25 mg QHS starting tonight then discontinue, to minimize risk of serotonin syndrome on her multiple medications. Start Abilify 2 mg QHS for antidepressant augmentation. Follow-up with neurology as an outpatient for treatment of headaches including injections. Monitor for medication compliance and for any psychotropic medication side effects. Will continue to monitor ongoing response to treatment. Encouraged participation in milieu.
[2023-04-02] MEDS: BENZOCAINE/MENTHOL LOZENG 1 EACH LOZENGE MUCOUS MEM PRN ×2 (19:06→23:31)
[2023-04-02] MEDS ORDERED: ARIPiprazole 2 MG TAB PO SCH (21:00)
[2023-04-02] MEDS: traZODone HCL 50 MG TAB PO SCH (21:15)
[2023-04-02] MEDS: MELATONIN 5 MG TABLET PO SCH (21:15)
[2023-04-02] MEDS: NORTRIPTYLINE 25 MG CAP PO SCH (21:15)
[2023-04-02] MEDS: FERROUS SULFATE 325 MG TAB PO SCH (21:15)
[2023-04-02] MEDS: DULoxetine HCL 30 MG CAPSULE.DR PO SCH (21:15)
[2023-04-02] MEDS: GABAPENTIN 400 MG CAP PO SCH (21:16)
[2023-04-02] MEDS: IBUPROFEN 600 MG TAB PO PRN (22:00)
[2023-04-03] MEDS: GABAPENTIN 300 MG CAP PO SCH (08:41)
[2023-04-03] MEDS: DULoxetine HCL 60 MG CAPSULE.DR PO SCH (08:41)
[2023-04-03] MEDS: MULTIVITAMINS, THERA 1 EACH TAB PO SCH (08:41)
[2023-04-03] MEDS: LACTOBACILLUS ACIDOPHILUS/PECT 1 EACH CAPSULE PO SCH (08:41)
[2023-04-03] MEDS: LITHIUM CARBONATE 150 MG CAP PO SCH ×2 (08:41→20:48)
[2023-04-03] MEDS: IBUPROFEN 600 MG TAB PO PRN (08:42)
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
[2023-04-03] MEDS: GABAPENTIN 400 MG CAP PO SCH (20:47)
[2023-04-03] MEDS: traZODone HCL 50 MG TAB PO SCH (20:47)
[2023-04-03] MEDS: DULoxetine HCL 30 MG CAPSULE.DR PO SCH (20:48)
[2023-04-03] MEDS: FERROUS SULFATE 325 MG TAB PO SCH (20:48)
[2023-04-03] MEDS: ARIPiprazole 5 MG TAB PO SCH (20:48)
[2023-04-03] MEDS: BENZOCAINE/MENTHOL LOZENG 1 EACH LOZENGE MUCOUS MEM PRN (21:27)
[2023-04-03] MEDS: SUMAtriptan succinate 50 MG TAB PO PRN (21:27)
[2023-04-03] MEDS: MELATONIN 5 MG TABLET PO SCH (22:10)
[2023-04-04] MEDS: GABAPENTIN 300 MG CAP PO SCH (09:39)
[2023-04-04] MEDS: LACTOBACILLUS ACIDOPHILUS/PECT 1 EACH CAPSULE PO SCH (09:39)
[2023-04-04] MEDS: MULTIVITAMINS, THERA 1 EACH TAB PO SCH (09:40)
[2023-04-04] MEDS: DULoxetine HCL 60 MG CAPSULE.DR PO SCH (09:40)
[2023-04-04] MEDS: LITHIUM CARBONATE 150 MG CAP PO SCH ×2 (09:40→20:30)
[2023-04-04] MEDS: MAGNESIUM HYDROXIDE 2,400 MG/30 ML CUP PO PRN (10:01)
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
[2023-04-04] MEDS: HYDROcodone/APAP 5-325MG 1 EACH TAB PO PRN (17:02)
[2023-04-04] MEDS: GABAPENTIN 400 MG CAP PO SCH (20:29)
[2023-04-04] MEDS: FERROUS SULFATE 325 MG TAB PO SCH (20:30)
[2023-04-04] MEDS: ARIPiprazole 5 MG TAB PO SCH (20:30)
[2023-04-04] MEDS: DULoxetine HCL 30 MG CAPSULE.DR PO SCH (20:30)
[2023-04-04] MEDS: IBUPROFEN 600 MG TAB PO PRN (20:30)
[2023-04-04] MEDS: MELATONIN 5 MG TABLET PO SCH (22:01)
[2023-04-04] MEDS: traZODone HCL 50 MG TAB PO SCH (22:03)
[2023-04-05] MEDS: DULoxetine HCL 60 MG CAPSULE.DR PO SCH (08:16)
[2023-04-05] MEDS: LITHIUM CARBONATE 150 MG CAP PO SCH ×2 (08:16→22:13)
[2023-04-05] MEDS: LACTOBACILLUS ACIDOPHILUS/PECT 1 EACH CAPSULE PO SCH (08:16)
[2023-04-05] MEDS: GABAPENTIN 300 MG CAP PO SCH (08:16)
[2023-04-05] MEDS: MULTIVITAMINS, THERA 1 EACH TAB PO SCH (08:16)
[2023-04-05] MEDS: HYDROcodone/APAP 5-325MG 1 EACH TAB PO PRN ×2 (08:20→18:55)
[2023-04-05] MEDS: MAGNESIUM HYDROXIDE 2,400 MG/30 ML CUP PO PRN (12:37)
[2023-04-05] MEDS: SUMAtriptan succinate 50 MG TAB PO PRN ×2 (15:09→17:32)
--- NOTE | 2023-04-05 15:26 | P.PN ---
Progress Note - Text Progress Note Date: 04/05/23 Interval History: Patient was seen active on the unit today and was agreeable to speak with telegraphic typewriter operator in the office. She appears calm, talkative but not pressured. She reports her mood is "not bad...better than it's been," objectively appears to be doing better today. She reports poor sleep last night and feels the Trazodone 50 mg QHS is not enough. She is still look into post-discharge residential programs. She continues to fixate on minor hygiene issues, such as needing to shave her legs everyday. She denies SI/HI, intent or plan today. She denies auditory or visual hallucinations. Patient denies any side effects from the medications and has been compliant with meds. Mental Status Exam: General Appearance: Patient appears to be stated age is alert, directable, and cooperative. Behavior: Patient is calmly seated without any agitated behavior. Speech: Patient's speech is fluent, and non-pressured, but still verbose. Mood/Affect: Mood is "not bad", affect is congruent and constricted. Suicidality/Homicidality: Patient denies suicidal ideation, plan or intent. She denies homicidal ideation. Perceptions: Patient denies any visual hallucinations and denies any auditory hallucinations. Though content/process: There is no evidence of any delusional thought content and thought process is more linear and goal-directed. Memory and concentration: AOX3, grossly intact for the purposes of this session Judgment and insight: Improving mildly Assessment Major depressive disorder, recurrent, severe Generalized anxiety disorder with panic attacks Rule out Obsessive compulsive personality disorder Pain disorder with psychological factors Plan: -Patient continues to meet criteria for inpatient psychiatric admission for symptom stabilization and safety. -Medications: Continue Abilify 5 mg daily mood/augmentation. Continue Cymbalta 60 mg daily and 30 mg QHS for depression/anxiety. Continue Gabapentin 600 mg daily and 1,200 mg QHS for mood/pain. Continue Hydroxyzine 50 mg Q6H PRN for anxiety. Continue [place] 150 mg BID for mood/suicidal thoughts. Continue Melatonin 10 mg QHS for sleep. Increase Trazodone to 100 mg QHS for sleep. -When necessary Ativan and Haldol for agitation/aggression. -NRT - nicotine patch -SW on board for discharge planning. Encouraged the patient to participate in milieu. Plan to discharge in the next 1-2 days if continues to stabilize.
[2023-04-05] MEDS ORDERED: traZODone HCL 50 MG TAB PO SCH (21:00)
[2023-04-05] MEDS: FERROUS SULFATE 325 MG TAB PO SCH (22:08)
[2023-04-05] MEDS: ARIPiprazole 5 MG TAB PO SCH (22:08)
[2023-04-05] MEDS: DULoxetine HCL 30 MG CAPSULE.DR PO SCH (22:10)
[2023-04-05] MEDS: GABAPENTIN 400 MG CAP PO SCH (22:13)
[2023-04-05] MEDS: MELATONIN 5 MG TABLET PO SCH (22:14)
[2023-04-06 05:26] VITALS: BP 115/62; PULSE 81; RESP 16; TEMP 97
[2023-04-06] MEDS: LITHIUM CARBONATE 150 MG CAP PO SCH (08:29)
[2023-04-06] MEDS: MULTIVITAMINS, THERA 1 EACH TAB PO SCH (08:29)
[2023-04-06] MEDS: LACTOBACILLUS ACIDOPHILUS/PECT 1 EACH CAPSULE PO SCH (08:29)
[2023-04-06] MEDS: DULoxetine HCL 60 MG CAPSULE.DR PO SCH (08:29)
[2023-04-06] MEDS: HYDROcodone/APAP 5-325MG 1 EACH TAB PO PRN (08:29)
[2023-04-06] MEDS: GABAPENTIN 300 MG CAP PO SCH (08:32)
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
[2023-04-21] MEDS ORDERED: ERENUMAB AOOE 70 MG/ML SQ SCH (09:00)
[2023-04-21] MEDS ORDERED: AUTO INJCT SQ SCH (09:00)
== END 2023-04-06 13:57 | disposition home or self-care (01) | DRG 751 ==
LOC: EC 13:39 → 3MHU 21:10
PROVIDERS: ADMIT Psychiatry & Neurology Psychiatry; ATTEND Psychiatry & Neurology Psychiatry
DX: F33.2 Major depressive disorder, recurrent severe without psychotic features (principal); F41.0 Panic disorder [episodic paroxysmal anxiety]; Z60.2 Problems related to living alone; Z56.0 Unemployment, unspecified; E87.1 Hypo-osmolality and hyponatremia; M54.9 Dorsalgia, unspecified; G89.29 Other chronic pain; I24.8 Other forms of acute ischemic heart disease; E87.20 Acidosis, unspecified; G43.909 Migraine, unspecified, not intractable, without status migrainosus; Z28.310 Unvaccinated for COVID-19; Z28.21 Immunization not carried out because of patient refusal; Z79.899 Other long term (current) drug therapy
CPT/HCPCS: 73502; 80053; 80061; 80306; 81001; 81025; 82075; 82248; 83036; 85025; 87636

== ENCOUNTER 2023-05-25 15:27 | Emergency (ER) | payer OTHER ==
--- NOTE | 2023-05-25 16:34 | XR ---
EXAMINATION TYPE: XR foot complete RT DATE OF EXAM: 05/25/2023 CLINICAL HISTORY: pain TECHNIQUE: Frontal, lateral and oblique images of the right foot are obtained. COMPARISON: None. FINDINGS: There is no acute fracture/dislocation evident. The joint spaces appear within normal العلي its. The overlying soft tissue appears unremarkable. IMPRESSION: There is no acute fracture or dislocation. ICD 10 NO FRACTURE, INITIAL EVALUATION
--- NOTE | 2023-05-25 16:45 | ED ---
General Adult HPI - General Chief complaint: Extremity Injury, Lower Stated complaint: possible broken right toe Time Seen by Provider: 05/25/23 16:09 Source: patient, RN notes reviewed Mode of arrival: wheelchair Limitations: no limitations - History of Present Illness Initial comments: 42-year-old female presents emergency department chief complaint of toe pain. She states that yesterday she had up from her chair and her toes and underneath her foot and she put weight on this area for foot. She states that she has pain in her medial foot and 1st toe on the right. She reports that she is able to move her foot and toes but it is painful. - Related Data Home Medications Medication Instructions Recorded Confirmed Gabapentin 1,200 mg PO HS 06/17/22 03/29/23 Erenumab-Aooe [Aimovig 70 mg SQ QMONTHLY 03/29/23 03/29/23 Autoinjector] Ferrous Sulfate [Iron (65 MG 325 mg PO HS 03/29/23 03/29/23 Elemental)] L.acidoph,Paracasei, B.lactis 1 cap PO DAILY 03/29/23 03/29/23 [Probiotic] Multivitamins, Thera [Multivitamin 1 tab PO DAILY 03/29/23 03/29/23 (formulary)] Previous Rx's Medication Instructions Recorded ARIPiprazole [Abilify] 5 mg PO HS 30 Days #30 tab 04/06/23 Benzocaine/Menthol Lozeng [Cepacol 1 each MUCOUS MEM Q6HR PRN lozenge 04/06/23 lozenge] DULoxetine HCL [Cymbalta] 60 mg PO BID 30 Days #60 cap 04/06/23 Gabapentin [Neurontin] 600 mg PO DAILY cap 04/06/23 HYDROcodone/APAP 5-325MG [[place] 1 each PO BID-W/MEALS PRN tab 04/06/23 5-325] Ibuprofen [Motrin] 600 mg PO Q6HR PRN tab 04/06/23 [place] Carbonate 150 mg PO BID 30 Days #60 cap 04/06/23 Melatonin 10 mg PO HS 30 Days #30 tab 04/06/23 SUMAtriptan succinate [Imitrex] 50 mg PO BID PRN 15 Days #30 tab 04/06/23 traZODone HCL 100 mg PO HS 30 Days #30 tablet 04/06/23 Allergies Allergy/AdvReac Type Severity Reaction Status Date / Time No Known Allergies Allergy Verified 05/25/23 16:01 Review of Systems ROS Statement: Those systems with pertinent positive or pertinent negative responses have been documented in the HPI. ROS Other: All systems not noted in ROS Statement are negative. Past Medical History Past Medical History: No Reported History, Osteoarthritis (OA) Additional Past Medical History / Comment(s): chronic back pain. herniated disc, ulcer, endometriosis, fibroids, post concussion syndrome History of Any Multi-Drug Resistant Organisms: None Reported Past Surgical History: No Surgical Hx Reported Additional Past Surgical History / Comment(s): breast biopsy L breast Past Anesthesia/Blood Transfusion Reactions: No Reported Reaction Past Psychological History: No Psychological Hx Reported Smoking Status: Never smoker Past Alcohol Use History: None Reported Past Drug Use History: None Reported General Exam Limitations: no limitations General appearance: alert, in no apparent distress Head exam: Present: atraumatic, normocephalic, normal inspection Eye exam: Present: normal appearance, PERRL, EOMI. Absent: scleral icterus, conjunctival injection, periorbital swelling ENT exam: Present: normal exam, mucous membranes moist Neck exam: Present: normal inspection. Absent: tenderness, meningismus, lymphadenopathy Respiratory exam: Present: normal lung sounds bilaterally. Absent: respiratory distress, wheezes, rales, rhonchi, stridor Cardiovascular Exam: Present: regular rate, normal rhythm, normal heart sounds. Absent: systolic murmur, diastolic murmur, rubs, gallop, clicks Extremities exam: Present: normal inspection, full ROM, tenderness (1st toe right foot ), normal capillary refill. Absent: pedal edema, joint swelling, calf tenderness Neurological exam: Present: alert, oriented X3 Psychiatric exam: Present: normal affect, normal mood Skin exam: Present: warm, dry, intact, normal color. Absent: rash Course Vital Signs 05/25/23 05/25/23 16:02 17:25 Temperature 98.7 F 98.1 F Pulse Rate 89 76 Respiratory 15 16 Rate Blood Pressure 113/72 122/77 O2 Sat by Pulse 100 98 Oximetry Medical Decision Making - Medical Decision Making Was pt. sent in by a medical professional or institution (, PA, [employer] SUPERINTENDENT, urgent care, hospital, or care home...) When possible be specific @ -No Did you speak to anyone other than the patient for history (EMS, parent, family, police, friend...)? What history was obtained from this source @ -No Did you review nursing and triage notes (agree or disagree)? Why? @ -I reviewed and agree with nursing and triage notes Were old charts reviewed (outside hosp., previous admission, EMS record, old EKG, old radiological studies, urgent care reports/EKG's, care home records)? Report findings @ -No old charts were reviewed Differential Diagnosis (chest pain, altered mental status, abdominal pain women, abdominal pain men, vaginal bleeding, weakness, fever, dyspnea, syncope, headache, dizziness, GI bleed, back pain, seizure, CVA, palpatations, mental health, musculoskeletal)? @ -Differential Musculoskeletal Muscular strain, contusion, ligament sprain, fracture, arthritis, septic arthritis, bursitis, cellulitis, muscle spasm, nerve compression, DVT, arterial occlusion, herpes zoster, electrolyte abnormality, tumor.... This is not meant to be in all inclusive list EKG interpreted by me (3pts min.). @ -None X-rays interpreted by me (1pt min.). @ -X-ray right foot shows no evidence of acute fracture CT interpreted by me (1pt min.). @ -None done U/S interpreted by me (1pt. min.). @ -None done What testing was considered but not performed or refused? (CT, X-rays, U/S, labs)? Why? @ -None What meds were considered but not given or refused? Why? @ -None Did you discuss the management of the patient with other professionals (lei capellan i.e. , PA, [employer] SUPERINTENDENT, lab, RT, psych nurse, sexual assault social worker, assistant technician, teacher, youth liaison officer, supportive employment case manager)? Give summary @ -No Was smoking cessation discussed for >3mins.? @ -No Was critical care preformed (if so, how long)? @ -No Were there social determinants of health that impacted care today? How? (Homelessness, low income, unemployed, alcoholism, drug addiction, transportation, low edu. Level, literacy, decrease access to med. care, penitentiary, rehab)? @ -No Was there de-escalation of care discussed even if they declined (Discuss DNR or withdrawal of care, Hospice)? DNR status @ -No What co-morbidities impacted this encounter? (DM, HTN, Smoking, COPD, CAD, Cancer, CVA, ARF, Chemo, Hep., AIDS, mental health diagnosis, sleep apnea, morbid obesity)? @ -None Was patient admitted / discharged? Hospital course, mention meds given and route, prescriptions, significant lab abnormalities, going to OR and other pertinent info. @ -Discharged. Patient presented to emergency department chief complaint of right first toe pain after an injury in which her toes flexed and she beared weight. Patient has good range of motion at her toes and ankle. She denies any pain in her ankle. X-ray obtained of her right foot which shows no evidence of acute fracture. Patient was offered an orthopedic shoe but she states that she has been. Recommended rest, ice, elevation with Tylenol as needed for pain control. Patient understanding and agreeable with discharge. Patient stable at time of discharge. Undiagnosed new problem with uncertain prognosis? @ -No Drug Therapy requiring intensive monitoring for toxicity (Heparin, Nitro, Insulin, Cardizem)? @ -No Were any procedures done? @ -No Diagnosis/symptom? @ -Toe contusion Acute, or Chronic, or Acute on Chronic? @ -Acute Uncomplicated (without systemic symptoms) or Complicated (systemic symptoms)? @ -uncomplicated Side effects of treatment? @ -No Exacerbation, Progression, or Severe Exacerbation? @ -No Poses a threat to life or bodily function? How? (Chest pain, [place], [place], pneumonia, PE, COPD, DKA, ARF, appy, cholecystitis, CVA, Diverticulitis, Homicidal, Suicidal, threat to staff... and all critical care pts) @ -No Disposition Clinical Impression: Toe contusion Disposition: HOME SELF-CARE Condition: Stable Instructions (If sedation given, give patient instructions): Foot Contusion (ED) Additional Instructions: Please alternate Tylenol and Motrin as needed for pain. Follow-up with your primary care provider. Return to the emergency department for any worsening symptoms. Is patient prescribed a controlled substance at d/c from ED?: No Referrals: Vladimir Bazzi DO [Primary Care Provider] - 1-2 days
[2023-05-25 17:31] VITALS: BP 122/77; PULSE 76; RESP 16; TEMP 98.1
== END 2023-05-25 17:25 | disposition home or self-care (01) ==
LOC: EC 15:27
DX: S90.121A Contusion of right lesser toe(s) without damage to nail, initial encounter (principal); M19.90 Unspecified osteoarthritis, unspecified site; Z79.1 Long term (current) use of non-steroidal anti-inflammatories (NSAID); X50.0XXA Overexertion from strenuous movement or load, initial encounter
CPT/HCPCS: 99283

== ENCOUNTER 2023-07-18 12:27 | Emergency (ER) | payer OTHER ==
--- NOTE | 2023-07-18 13:08 | ED ---
Back Pain HPI - General Source: patient, RN notes reviewed Mode of arrival: ambulatory Limitations: no limitations <Johnie Stein - Last Filed: 07/18/23 13:06> <Philippe Clark - Last Filed: 07/18/23 15:39> - General Chief Complaint: Back Pain/Injury Stated Complaint: right shoulder blade pain Time Seen by Provider: 07/18/23 13:06 - History of Present Illness Initial Comments: 43-year-old female presents emergency Department with chief complaint of thoracic back pain, shoulder pain. Patient states that this started over the last week denies any current medication injury states it hurts with movement, some deep inspiration does not feel short of breath. Denies any chest pain she is concerned that during her adjustments from the chiropractor she may have injured something. (Johnie Stein) Dictation was produced using Fridge dictation software. please excuse any grammatical, word or spelling errors. Chief Complaint: 43-year-old female with several days of right scapular pain History of Present Illness: This is a 43-year-old female witha past medical hist ory presents to the emergency Department with right scapular pain. She states that she thinks she sneezed really hard started to feel a mild sharp pain right under the inferior tip of her right scapula states that it hurts when she tries to take a deep breath. No shortness of breath or palpitations. No history of blood clots. The ROS documented in this emergency department record has been reviewed and confirmed by me. Those systems with pertinent positive or negative responses have been documented in the HPI. All other systems are other negative and/or noncontributory. (Philippe Clark) - Related Data Home Medications Medication Instructions Recorded Confirmed Gabapentin 1,200 mg PO HS 06/17/22 03/29/23 Erenumab-Aooe [Aimovig 70 mg SQ QMONTHLY 03/29/23 03/29/23 Autoinjector] Ferrous Sulfate [Iron (65 MG 325 mg PO HS 03/29/23 03/29/23 Elemental)] L.acidoph,Paracasei, B.lactis 1 cap PO DAILY 03/29/23 03/29/23 [Probiotic] Multivitamins, Thera [Multivitamin 1 tab PO DAILY 03/29/23 03/29/23 (formulary)] Previous Rx's Medication Instructions Recorded ARIPiprazole [Abilify] 5 mg PO HS 30 Days #30 tab 04/06/23 Benzocaine/Menthol Lozeng [Cepacol 1 each MUCOUS MEM Q6HR PRN lozenge 04/06/23 lozenge] DULoxetine HCL [Cymbalta] 60 mg PO BID 30 Days #60 cap 04/06/23 Gabapentin [Neurontin] 600 mg PO DAILY cap 04/06/23 HYDROcodone/APAP 5-325MG [[place] 1 each PO BID-W/MEALS PRN tab 04/06/23 5-325] Ibuprofen [Motrin] 600 mg PO Q6HR PRN tab 04/06/23 The Silos Carbonate 150 mg PO BID 30 Days #60 cap 04/06/23 Melatonin 10 mg PO HS 30 Days #30 tab 04/06/23 SUMAtriptan succinate [Imitrex] 50 mg PO BID PRN 15 Days #30 tab 04/06/23 traZODone HCL 100 mg PO HS 30 Days #30 tablet 04/06/23 Allergies Allergy/AdvReac Type Severity Reaction Status Date / Time No Known Allergies Allergy Verified 07/18/23 12:45 Review of Systems ROS Other: All systems not noted in ROS Statement are negative. <Johnie Stein - Last Filed: 07/18/23 13:06> ROS Other: All systems not noted in ROS Statement are negative. <Philippe Clark - Last Filed: 07/18/23 15:39> ROS Statement: Those systems with pertinent positive or pertinent negative responses have been documented in the HPI. Past Medical History Past Medical History: No Reported History, Osteoarthritis (OA) Additional Past Medical History / Comment(s): chronic back pain. herniated disc, ulcer, endometriosis, fibroids, post concussion syndrome History of Any Multi-Drug Resistant Organisms: None Reported Past Surgical History: No Surgical Hx Reported Additional Past Surgical History / Comment(s): breast biopsy L breast Past Anesthesia/Blood Transfusion Reactions: No Reported Reaction Past Psychological History: No Psychological Hx Reported Smoking Status: Never smoker Past Alcohol Use History: None Reported Past Drug Use History: None Reported <Johnie Stein - Last Filed: 07/18/23 13:06> General Exam Limitations: no limitations <Johnie Stein - Last Filed: 07/18/23 13:06> <Philippe Clark - Last Filed: 07/18/23 15:39> - General Exam Comments Initial Comments: Visual Physical Exam Vital signs reviewed General: Well-appearing, nontoxic, no acute distress. Head: Normocephalic, atraumatic Eyes: PERRLA, EOMI ENT: Airway patent Chest: Nonlabored breathing Skin: No visual rash, normal skin tone Neuro: Alert and oriented 3 Musculoskeletal: No gross abnormalities (Johnie Stein) PHYSICAL EXAM: General Impression: Alert and oriented x3, not in acute distress HEENT: Normocephalic atraumatic, extra-ocular movements intact, pupils equal and reactive to light bilaterally, mucous membranes moist. Cardiovascular: Heart regular rate and rhythm Chest: Able to complete full sentences, no retractions, no tachypnea Abdomen: abdomen soft, non-tender, non-distended, no organomegaly Musculoskeletal: Pulses present and equal in all extremities, no peripheral edema, palpatory tenderness to the inferior angle of the right scapula Motor: no focal deficits noted Neurological: CN II-XII grossly intact, no focal motor or sensory deficits noted Skin: Intact with no visualized rashes Psych: Normal affect and mood (Philippe Clark) Course Vital Signs 07/18/23 12:41 Temperature 98.4 F Pulse Rate 96 Respiratory 18 Rate Blood Pressure 123/63 O2 Sat by Pulse 96 Oximetry Medical Decision Making <Johnie Stein - Last Filed: 07/18/23 13:06> <Philippe Clark - Last Filed: 07/18/23 15:39> - Medical Decision Making I completed the quick note portion of this chart signed Johnie Stein PA-C (Johnie Stein) Was pt. sent in by a medical professional or institution ([facility], [employer], urgent care, hospital, or intermediate...) When possible be specific @ -No Did you speak to anyone other than the patient for history (EMS, parent, family, police, friend...)? What history was obtained from this source @ -No Did you review nursing and triage notes (agree or disagree)? Why? @ -I reviewed and agree with nursing and triage notes Were old charts reviewed (outside hosp., previous admission, EMS record, old EKG, old radiological studies, urgent care reports/EKG's, intermediate records)? Report findings @ -No old charts were reviewed Differential Diagnosis (chest pain, altered mental status, abdominal pain women, abdominal pain men, vaginal bleeding, musculoskeletal, weakness, fever, dyspnea, syncope, headache, dizziness, GI bleed, back pain, seizure, CVA, palpatations, mental health)? @ -not applicable EKG interpreted by me (3pts min.). @ -My EKG interpretation: Ventricular rate 81, sinus rhythm, WA interval 140, QRS 82, QTC 370. No WA prolongation, no QTC prolongation, no ST or T-wave changes noted. Overall, this EKG is unremarkable X-rays interpreted by me (1pt min.). @ -Chest x-ray shows no acute processes CT interpreted by me (1pt min.). @ -None done U/S interpreted by me (1pt. min.). @ -None done What testing was considered but not performed or refused? (CT, X-rays, U/S, labs)? Why? @ -None What meds were considered but not given or refused? Why? @ -None Did you discuss the management of the patient with other professionals (professionals i.e. , PA, [employer], lab, RT, psych nurse, secondary social studies teacher, fruit picker, teacher, chief science officer, showcase trimmer)? Give summary @ -No Was smoking cessation discussed for >3mins.? @ -No Was critical care preformed (if so, how long)? @ -No Were there social determinants of health that impacted care today? How? (Homele ssness, low income, unemployed, alcoholism, drug addiction, transportation, low edu. Level, literacy, decrease access to med. care, group home, rehab)? @ -No Was there de-escalation of care discussed even if they declined (Discuss DNR or withdrawal of care, Hospice)? DNR status @ -No What co-morbidities impacted this encounter? (DM, HTN, Smoking, COPD, CAD, Cancer, CVA, ARF, Chemo, Hep., AIDS, mental health diagnosis, sleep apnea, morbid obesity)? @ -None Was patient admitted / discharged? Hospital course, mention meds given and route, prescriptions, significant lab abnormalities, going to OR and other pertinent info. @ -43-year-old female presents emergency Department with symptoms of pleuritic scapular pain. Vital signs stable. Patient high-risk features. X-rayed EKG unremarkable. Patient observed in emergency department for several hours. Reevaluated bedside and stable for discharge. Undiagnosed new problem with uncertain prognosis? @ -No Drug Therapy requiring intensive monitoring for toxicity (Heparin, Nitro, Insulin, Cardizem)? @ -No Were any procedures done? @ -No Diagnosis/symptom? Acute, or Chronic, or Acute on Chronic? Uncomplicated (without systemic symptoms) or Complicated (systemic symptoms)? @ -pleurisy Side effects of treatment? @ -No Exacerbation, Progression, or Severe Exacerbation? @ -No Poses a threat to life or bodily function? How? (Chest pain, [place], [place], pneumonia, PE, COPD, DKA, ARF, appy, cholecystitis, CVA, Diverticulitis, Homicidal, Suicidal, threat to staff... and all critical care pts) @ -No (Philippe Clark) Disposition <Johnie Stein - Last Filed: 07/18/23 13:06> Is patient prescribed a controlled substance at d/c from ED?: No Time of Disposition: 15:39 <Philippe Clark - Last Filed: 07/18/23 15:39> Clinical Impression: Pleurisy Disposition: HOME SELF-CARE Condition: Good Instructions (If sedation given, give patient instructions): Pleurisy (ED) Referrals: Vladimir Bazzi DO [Primary Care Provider] - 1-2 days
--- NOTE | 2023-07-18 14:07 | XR ---
EXAMINATION TYPE: XR thoracic spine 2V DATE OF EXAM: 07/18/2023 COMPARISON: NONE HISTORY: Pain TECHNIQUE: 3 views submitted FINDINGS: Alignment is anatomic. There is no compression deformities. Vertebral body height and disc interspa eli are maintained. Mild hypertrophic spurring. IMPRESSION: 1. No acute abnormality.
--- NOTE | 2023-07-18 14:08 | XR ---
EXAMINATION TYPE: XR chest 2V DATE OF EXAM: 07/18/2023 COMPARISON: 10/02/2022 TECHNIQUE: PA and lateral views submitted. HISTORY: Pain FINDINGS: The lungs are clear and there is no pneumothorax, pleural effusion, or focal pneumonia. Heart size normal and no overt failure. Osseous structures intact. IMPRESSION: 1. No acute process.
[2023-07-18] MEDS ORDERED: LIDOCAINE 5% PATCH TOPICAL STA (15:33)
[2023-07-18 16:11] VITALS: BP 120/68; PULSE 92; RESP 17; TEMP 98.1
== END 2023-07-18 15:55 | disposition home or self-care (01) ==
LOC: EC 12:27
DX: R09.1 Pleurisy (principal)
CPT/HCPCS: 71046; 72070; 93005; 99283

== ENCOUNTER → 2023-08-28 | Outpatient (CLI) | payer OTHER ==
[2023-08-28 15:26] LABS: Basophils # (A) 0.03 X 10*3/uL (0.00-0.10); Basophils % (A) 0.5 %; Eosinophils # (A) 0.03 X 10*3/uL (0.04-0.35); Eosinophils % (A) 0.5 %; HCT 43.7 % (37.2-46.3); HGB 14.6 g/dL (12.0-15.0); Lymphocytes # (A) 1.64 X 10*3/uL (0.90-5.00); Lymphocytes % (A) 28.5 %; MCH 30.9 pg (27.0-32.0); MCHC 33.4 g/dL (32.0-37.0); MCV 92.4 FL (80.0-97.0); Mean Platelet Volume 9.3 FL (9.5-12.2); Monocytes # (A) 0.39 X 10*3/uL (0.20-1.00); Monocytes % (A) 6.8 %; NRBC Per 100 WBC 0 X 10*3/uL (0.00-0.01); Neutrophils # (A) 3.64 X 10*3/uL (1.80-7.70); Neutrophils % (A) 63.4 %; Platelet Count 337 X 10*3/uL (140-440); RBC 4.73 X 10*6/uL (4.10-5.20); RDW 12.4 % (11.5-14.5); WBC 5.75 X 10*3/uL (4.50-10.00)
[2023-08-28 15:29] LABS: Blood Urea Nitrogen 16.5 mg/dL (9.0-27.0); Carbon Dioxide 25.6 mmol/L (21.6-31.8); Chloride 100 mmol/L (96-109); Glucose 87 mg/dL (70-110); Potassium 4.4 mmol/L (3.5-5.5); Sodium 138 mmol/L (135-145)
== END | disposition home or self-care (01) ==
LOC: LABWHC1 10:52
PROVIDERS: ATTEND Obstetrics & Gynecology Obstetrics
DX: Z01.812 Encounter for preprocedural laboratory examination (principal); D25.9 Leiomyoma of uterus, unspecified; N92.0 Excessive and frequent menstruation with regular cycle
CPT/HCPCS: 36415; 80051; 82565; 82947; 84520; 85025; 86850; 86900; 86901; 87086

== ENCOUNTER 2023-09-05 05:46 | Day surgery (SDC) | payer OTHER ==
[2023-08-31 09:18] VITALS: BMI 31.3
[2023-09-05] MEDS ORDERED: ONDANSETRON 4 MG/2 ML VIAL IVP ONE (06:00)
[2023-09-05] MEDS ORDERED: DEXAMETHASONE SOD PHOSPHATE 4 MG/ML 1 ML VIAL IV ONE (06:00)
[2023-09-05] MEDS ORDERED: ACETAMINOPHEN IV (For NPO) 1,000 MG in EMPTY BAG 1 BAG IVPB PRN (06:00)
[2023-09-05] MEDS ORDERED: LACTATED RINGERS 1,000 ML IV ONE ×3 (06:12→09:46)
[2023-09-05] MEDS ORDERED: LIDOCAINE 1% (10MG/ML) FOR IV START INTRADERMA ONE (06:32)
[2023-09-05] MEDS ORDERED: SCOPOLAMINE 1 MG/72 HR PATCH TRANSDERM ONE (06:37)
[2023-09-05] MEDS ORDERED: fentaNYL (PF) 50 MCG/ML 2 ML AMP IV PRN (07:00)
[2023-09-05] MEDS ORDERED: fentaNYL (PF) 50 MCG/ML 2 ML AMP IVP ONE (07:04)
[2023-09-05] MEDS ORDERED: MIDAZOLAM 2 MG/2 ML VIAL IVP ONE (07:04)
[2023-09-05] MEDS ORDERED: NEOSTIGMINE 1 MG/ML 10 ML VIAL ONE (07:28)
[2023-09-05] MEDS ORDERED: SUCCINYLCHOLINE CHLORIDE 200 MG/10 ML VIAL IV ONE (07:28)
[2023-09-05] MEDS ORDERED: ROCURONIUM 10 MG/ML (5 ML VIAL) IV ONE (07:28)
[2023-09-05] MEDS ORDERED: GLYCOPYRROLATE 0.2 MG/ML 2 ML VIAL ONE (07:28)
[2023-09-05] MEDS ORDERED: LIDOCAINE 1% INJ 10MG/ML (20 ML MDV) ONE (07:28)
[2023-09-05] MEDS ORDERED: fentaNYL (PF) 50 MCG/ML 2 ML AMP ONE (07:28)
[2023-09-05] MEDS ORDERED: MORPHINE SULFATE (PF) 0.3 MG/0.3 ML SYR ONE (07:28)
[2023-09-05] MEDS ORDERED: PROPOFOL 10 MG/ML 20 ML VIAL IV ONE (07:28)
--- NOTE | 2023-09-05 07:42 | P.HPOB ---
History of Present Illness H&P Date: 09/05/23 Chief Complaint: Fibroids, heavy menstrual bleeding, failed medical management This is a 43-year-old 1 para 1 that presents with complaints of heavy menstrual bleeding with known uterine fibroids. Patient states her bleeding has been stable with the Mirena but notes after she had her Mirena replaced bleeding became very her. Ultrasound evaluation in January with noted fibroids largest measuring 5 cm posterior. Uterus noted to be 11 x 8 x 10 cm She states her menstrual cycles are noted to be irregular with heavy flow, every 2-3 weeks. She is noting increasing fatigue along with some weight gain and states she is done with childbearing requesting definitive treatment. Review of Systems Constitutional: Reports fatigue, Denies chills, Denies fever Ears, nose, mouth and throat: Denies headache Cardiovascular: Denies leg edema Respiratory: Denies dyspnea Gastrointestinal: Denies constipation, Denies diarrhea, Denies nausea, Denies vomiting Genitourinary: Reports menorrhagia, Denies Menstruation: Reports menses variable, Reports period heavy Past Medical History Past Medical History: No Reported History, Osteoarthritis (OA) Additional Past Medical History / Comment(s): chronic back pain. herniated disc, ulcer, endometriosis, fibroids, post concussion syndrome History of Any Multi-Drug Resistant Organisms: None Reported Past Surgical History: No Surgical Hx Reported Additional Past Surgical History / Comment(s): breast biopsy L breast Past Anesthesia/Blood Transfusion Reactions: No Reported Reaction Additional Past Anesthesia/Blood Transfusion Reaction / Comment(s): no anesthesia hx. grandmother had difficulty waking up. Past Psychological History: No Psychological Hx Reported - Past Family History Mother Family Medical History: Fibromyalgia Medications and Allergies Home Medications Medication Instructions Recorded Confirmed Type Gabapentin 1,200 mg PO HS 06/17/22 08/31/23 History Erenumab-Aooe [Aimovig 70 mg SQ QMONTHLY 03/29/23 08/31/23 History Autoinjector] Ferrous Sulfate [Iron (65 MG 325 mg PO HS 03/29/23 08/31/23 History Elemental)] L.acidoph,Paracasei, B.lactis 1 cap PO DAILY 03/29/23 08/31/23 History [Probiotic] ARIPiprazole [Abilify] 10 mg PO DAILY 08/31/23 08/31/23 History DULoxetine HCL [Cymbalta] 120 mg PO DAILY 08/31/23 08/31/23 History Gabapentin [Neurontin] 600 mg PO QAM 08/31/23 08/31/23 History lamoTRIgine [lamoTRIgine ER] 50 mg PO HS 08/31/23 08/31/23 History methocarbamoL 500 mg PO BID 08/31/23 08/31/23 History Allergies Allergy/AdvReac Type Severity Reaction Status Date / Time hydromorphone [From Dilaudid] Allergy Unknown family hx Verified 08/31/23 08:39 of severe reaction-dr instructed not to use. nickel Allergy Unknown infected Verified 08/31/23 08:39 ears with nickel/surgical steel Exam Osteopathic Statement: *. No significant issues noted on an osteopathic structural exam other than those noted in the History and Physical/Consult. Vital Signs Temp Pulse Resp BP Pulse Ox 09/05/23 07:13 83 16 119/60 99 09/05/23 07:03 83 16 118/71 99 09/05/23 06:32 98.5 F 81 18 119/71 98 Intake and Output 09/04/23 09/05/23 09/05/23 22:59 06:59 14:59 Intake Total 300 Balance 300 Intake: IV 300 Other: Weight 98.9 kg Targeted physical exam is performed in this date and transport engineer a well-nourished well-developed non female in no acute distress, breathing is noted to be nonlabored, heart has a regular rate and rhythm, abdomen is soft and nontender, a genitourinary exam external genitalia is noted be normal for age on discharge is present the vaginal tissues noted to be pink and well rugated the bladder is nontender the cervix appears healthy with no lesions the uterus is noted to be enlarged, 14 week size asymmetric on palpation and fixed. Assessment and Plan (1) Menorrhagia Current Visit: Yes Status: Acute Code(s): N92.0 - EXCESSIVE AND FREQUENT MENSTRUATION WITH REGULAR CYCLE SNOMED Code(s): 847943550 (2) Uterine fibroid Current Visit: Yes Status: Acute Code(s): D25.9 - LEIOMYOMA OF UTERUS, UNSPECIFIED SNOMED Code(s): 32193785 Plan: 43-year-old with known uterine fibroids and heavy menstrual bleeding that presents for robotic-assisted vaginal hysterectomy, bilateral salpingectomy, diagnostic cystoscopy, possible open. Patient is desirous of hysterectomy secondary to heavy menstrual bleeding and failed medical treatment. Patient is counseled on surgery given known uterine fibroids. Risks of procedure reviewed including but not limited to infection, bleeding, damage to bladder, bowel, ureteric injury. Patient states understanding. Risks of inability to complete the procedure robotically and possibility of proceeding with expiratory laparotomy are discussed. All cautions were answered patient states understanding. We'll proceed with robotic cyst vaginal hysterotomy, bilateral salpingectomy, diagnostic cystoscopy.
--- NOTE | 2023-09-05 09:06 | P.ANPRN ---
Procedure Note - Anesthesia - Epidural/Spinal Spinal Time Out Performed: Yes Date of Procedure: 09/05/23 Procedure Start Time: 07:03 Procedure Stop Time: 07:09 Location of Patient: PreOp Indication: Acute Post-Operative Pain, Requested by Surgeon (mauricio) Sedation Type: Sedate with meaningful contact maintained Preparation: Sterile Prep Number of Attempts: 1 Position: Sitting Catheter: None Needle Guage: 25 Injectate: duramorph 300mcg and fentanyl 25mcg Narrative: sterile prep chlorohexidine. L4-5. 25g spinal. 1 attempt. Blood Aspirated: No Pain Paresthesia on Injection Noted: No Events: Uneventful and Well Tolerated
[2023-09-05] MEDS ORDERED: BUPIVACAINE (PF) 0.25% 30 ML VIAL SQ ONE (09:15)
[2023-09-05] MEDS ORDERED: Acetaminophen-Codeine 300-30mg TAB PO PRN (09:54)
[2023-09-05] MEDS ORDERED: ACETAMINOPHEN IV (For NPO) 1,000 MG in EMPTY BAG 1 BAG IVPB ONE (09:54)
--- NOTE | 2023-09-05 10:11 | P.OP ---
Date of Procedure: 09/05/23 Preoperative Diagnosis: Menstrual bleeding, uterine fibroids, enlarged uterus, failed medical treatment Postoperative Diagnosis: Same Procedure(s) Performed: Robotic cyst vaginal hysterectomy, bilateral salpingectomy, diagnostic cystoscopy, myomectomy Anesthesia: HYUN Surgeon: Teresa hSerman Manager Qa #1: Keena Kim Estimated Blood Loss (ml): 50 IV fluids (ml): 800 Urine output (ml): 150 Pathology: other (Fibroids, uterus, bilateral fallopian tubes, cervix) Condition: stable Disposition: PACU Indications for Procedure: Enlarged uterus with noted uterine fibroids, failed medical treatment for heavy menstrual bleeding. Operative Findings: Enlarged uterus, multiple uterine fibroids are appreciated largest posterior filling the entire posterior cul-de-sac. Bilateral ovaries appear normal Description of Procedure: Patient was taken back to the operating suite where general anesthesia was obtained without difficulty by the anesthesia department. She was prepped and draped in the normal sterile fashion in the dorsal lithotomy position. The Shea catheter was then placed under sterile technique. A weighted speculum was placed in the posterior vaginal vault the anterior lip of the the cervix was visualized and grasped with a single-tooth tenaculum. The endocervical canal was then serially dilated. At the care uterine manipulator was advanced into the uterus as a means to manipulate the uterus throughout the procedure. The balloon was insufflated with air, and all instruments removed from the patient's vaginal vault. Attention turned the patient's abdomen where a proximally 2 finger breaths above the umbilicus a small skin incision is made. Through this umbilical incision the Veress needles placed, once the Veress needle was deemed to be in the proper position with a drop of CO2 pressure with insufflation of CO2 gas CO2 insufflation was allowed to occur. At this time an 8 mm trocar and sleeve with the laparoscope in place placed through the skin incision toward the pneumoperitoneum. The above-noted findings are visualized. The additional port sites are then placed at 10 cm lateral and 3 cm inferior to midline port these are 8 mm ports and placed under direct visualization. In the left upper quadrant a 12 mm trocar and sleeve is placed under direct visualization. The da Urmila robot is docked in the usual fashion. In the right operative arm the monopolar scissors is placed, and the left operative arm the bipolar forceps is placed. The uterus was then elevated and the above-noted findings were visua lized. The left fallopian tube is then elevated and coagulated and transected. Hemostasis was noted. This continued through the uterine artery ovarian ligament. The uterine ovarian ligament was then coagulated distally and proximally divided. The round ligament was visualized coagulated and transected. The bladder flap from the left was then created using sharp and blunt dissection. Attention was then turned to the patient's right fallopian tube which was elevated coagulated and transected. The utero-ovarian ligament was coagulated distally and proximally and divided. This continued through the broad and toward the round which was coagulated and transected. The bladder flap from the right was then created using sharp and blunt dissection. The ascending branch of the uterine artery from the right was visualized coagulated and transected. At this point the Ray-Omar was advanced into the abdomen to further dissect the bladder away from the operating field, it was removed after dissection. The left utero-ovarian ligament was then visualized coagulated and transected. At this time the uterus was elevated out of the posterior cul-de-sac the fibroid was appreciated and a myomectomy was performed sharply. The large fibroids and placed in an Endo Catch bag and placed in the upper abdomen. A colpotomy incision was then performed in a circumferential fashion. The uterus was then delivered through the vaginal opening. The Endo Catch bag was then placed through the vaginal opening and removed without difficulty. The pelvis was then copiously irrigated. The vaginal cuff was then closed with 0 Vicryl in multiple [id number] sutures. After closure of the pelvis was irrigated hemostasis appreciated. All counts are noted to be correct 2 at the end of this portion of the procedure. The da Urmila was undocked in usual fashion. Attention was then turned the patient's Shea catheter which was removed and noted to be draining clear yellow urine. A cystoscope was performed. The cystoscope was placed through the urethra and toward the bladder bladder bubble was appreciated both ureteral orifices were noted to be spilling clear yellow urine. A complete survey of the bladder entirely intact mucosa was appreciated. The cystoscope was removed and the Shea catheter was replaced. The vagina was inspected and no lacerations were appreciated from removal of the uterus. The skin incisions were then closed with 4-0 Vicryl in a subcuticular fashion. Suture strips and sterile dressings were applied. Once again all counts were noted to be correct 2. Patient tolerated procedure well was taken the recovery room awake in stable condition.
[2023-09-05] MEDS ORDERED: NALOXONE 0.4 MG/ML 1 ML VIAL IV PRN (10:46)
[2023-09-05] MEDS ORDERED: ONDANSETRON 4 MG/2 ML VIAL IVP PRN (10:46)
[2023-09-05] MEDS ORDERED: diphenhydrAMINE 50 MG/ML 1 ML VIAL IVP PRN (10:46)
[2023-09-05] MEDS ORDERED: MORPHINE SULFATE 2 MG/ML SYRINGE IVP PRN (10:46)
[2023-09-05] MEDS: LACTATED RINGERS 1,000 ML IV SCH (14:52)
[2023-09-05] MEDS: NALBUPHINE 10 MG/ML (10 ML MDV) IV PRN ×2 (15:13→22:42)
[2023-09-05] MEDS ORDERED: SENNOSIDES-DOCUSATE SODIUM 1 EACH TAB PO SCH (20:00)
[2023-09-05] MEDS: SENNOSIDES-DOCUSATE SODIUM 1 EACH TAB PO SCH (20:46)
[2023-09-05] MEDS: methocarbamoL 500 MG TAB PO SCH (20:46)
[2023-09-05] MEDS: IBUPROFEN 600 MG TAB PO PRN (20:48)
[2023-09-05] MEDS ORDERED: lamoTRIgine 25 MG TAB PO SCH (21:00)
[2023-09-05] MEDS ORDERED: lamoTRIgine 100 MG TAB PO SCH (21:00)
[2023-09-05] MEDS ORDERED: GABAPENTIN 400 MG CAP PO SCH (21:00)
[2023-09-06] MEDS: IBUPROFEN 600 MG TAB PO PRN ×2 (02:56→08:59)
--- NOTE | 2023-09-06 06:55 | P.PN ---
Progress Note - Text Progress Note Date: 09/06/23 Ms. Stockton is a 43- year-old female s/p pod#1 Robotic cyst vaginal hysterectomy, bilateral salpingectomy, diagnostic cystoscopy, myomectomy. spinal analgesia with Astramorph 300 g, and 25 mcg of fentanyl for postop pain. Today she is comfortable sitting in her bed. Today patient rated her pain level 3-4 out of 10 in severity. Still c/o of itching, with help of medications getting better. Denied any fever, drowsiness, confusion. Denied any weakness, tingling sensation in her lower extremities. Denied any bowel or bladder problems. Moving all extremities without any difficulty. Able to walk without any difficulties. Vitals: Hemodynamically stable Continue oral pain medication as per primary team.
[2023-09-06 07:20] LABS: Basophils % (A) 0 %; Eosinophils % (A) 0 %; HCT 37.5 % (34.0-46.0); HGB 12.5 gm/dL (11.4-16.0); Lymphocytes # (A) 1.5 k/uL (1.0-4.8); Lymphocytes % (A) 17 %; MCH 31.7 pg (25.0-35.0); MCHC 33.4 g/dL (31.0-37.0); MCV 95.1 fL (80.0-100.0); Mean Platelet Volume 7.7; Monocytes # (A) 0.5 k/uL (0-1.0); Monocytes % (A) 5 %; Neutrophils % (A) 77 %; Platelet Count 294 k/uL (150-450); RBC 3.94 m/uL (3.80-5.40); RDW 13.1 % (11.5-15.5); WBC 9.1 k/uL (3.8-10.6)
[2023-09-06] MEDS: NALBUPHINE 10 MG/ML (10 ML MDV) IV PRN (07:48)
[2023-09-06] MEDS: SENNOSIDES-DOCUSATE SODIUM 1 EACH TAB PO SCH (07:48)
[2023-09-06] MEDS: ACETAMINOPHEN TAB 325 MG TAB PO PRN ×2 (07:48→13:34)
[2023-09-06] MEDS: LACTATED RINGERS 1,000 ML IV SCH (08:35)
[2023-09-06 08:49] VITALS: BP 120/73; PULSE 77; RESP 16; TEMP 98.1
[2023-09-06] MEDS: methocarbamoL 500 MG TAB PO SCH (08:58)
[2023-09-06] MEDS ORDERED: DULoxetine HCL 60 MG CAPSULE.DR PO SCH (09:00)
[2023-09-06] MEDS ORDERED: GABAPENTIN 300 MG CAP PO SCH (09:00)
[2023-09-06] MEDS ORDERED: ARIPiprazole 10 MG TAB PO SCH (09:00)
--- NOTE | 2023-09-06 13:03 | P.DS ---
Providers Date of admission: 09/05/2023 Expected date of discharge: 09/06/23 Attending physician: Teresa Sherman Primary care physician: Vladimir Bazzi - Discharge Diagnosis(es) (1) Menorrhagia Current Visit: Yes Status: Acute (2) Uterine fibroid Current Visit: Yes Status: Acute (3) Status post laparoscopic hysterectomy Current Visit: Yes Status: Acute Hospital Course: 43-year-old female presents on September 05 for scheduled robotic cyst vaginal hysterectomy with bilateral salpingectomy, diagnostic cystoscopy secondary to known uterine fibroids and heavy menstrual bleeding. Patient had tried medical management with Mirena which has failed. Patient notes heavy menstrual cycles at irregular intervals. Patient was counseled on definitive treatment for which she accepted. She is done with childbearing. For full details on this patient please see the dictated history and physical. Patient was taken back to the operating room where hysterectomy was performed without difficulty. An enlarged uterus with multiple fibroids was appreciated. For full details on the surgery please see the dictated operative report. Patient's postoperative course has been uneventful. On this postoperative day #1 she is involuting and voiding without difficulty. She is tolerating a regular diet without nausea or vomiting. She is noting some gas distention but notes positive flatus. Minimal vaginal bleeding is appreciated. She is voiding without difficulty. She states her pain is controlled with oral ibuprofen and Tylenol. Patient Condition at Discharge: Good Plan - Discharge Summary Discharge Rx Participant: No New Discharge Prescriptions: No Action Gabapentin 1,200 mg PO HS Erenumab-Aooe [Aimovig Autoinjector] 70 mg SQ QMONTHLY DULoxetine HCL [Cymbalta] 120 mg PO DAILY lamoTRIgine [lamoTRIgine ER] 50 mg PO HS methocarbamoL 500 mg PO BID Ferrous Sulfate [Iron (65 MG Elemental)] 325 mg PO HS L.acidoph,Paracasei, B.lactis [Probiotic] 1 cap PO DAILY Gabapentin [Neurontin] 600 mg PO QAM ARIPiprazole [Abilify] 10 mg PO DAILY Discharge Medication List Gabapentin 1,200 mg PO HS 06/17/22 [History] Erenumab-Aooe [Aimovig Autoinjector] 70 mg SQ QMONTHLY 03/29/23 [History] Ferrous Sulfate [Iron (65 MG Elemental)] 325 mg PO HS 03/29/23 [History] L.acidoph,Paracasei, B.lactis [Probiotic] 1 cap PO DAILY 03/29/23 [History] ARIPiprazole [Abilify] 10 mg PO DAILY 08/31/23 [History] DULoxetine HCL [Cymbalta] 120 mg PO DAILY 08/31/23 [History] Gabapentin [Neurontin] 600 mg PO QAM 08/31/23 [History] lamoTRIgine [lamoTRIgine ER] 50 mg PO HS 08/31/23 [History] methocarbamoL 500 mg PO BID 08/31/23 [History] Follow up Appointment(s)/Referral(s): Teresa Sherman DO [Doctor of Osteopathic Medicine] - 2 Weeks Patient Instructions/Handouts: *[facility] - (Anesthesia) Discharge Instructions Outpatient Surgery, *[facility] - Scopalamine Patch Instructions, Laparoscopic Hysterectomy (DC), Laparoscopic Hysterectomy (GEN) Activity/Diet/Wound Care/Special Instructions: Stpo-vpf-eadhlfe ibuprofen 3 tablets every 6 hours as needed for pain along with Tylenol as needed for grams in 24 hours is the suggested limit. Postoperative care is discussed postoperative appointment in 2 weeks is reviewed. Patient is to take off the Tegaderm along with a 2 x 2 forceps with the Steri-Strips remaining in the shower and today or tomorrow. I will remove Steri-Strips in the office. Patient is to call for postoperative appointment, should she have any concerns time and she is urged to call the office and be seen prior. Discharge Disposition: HOME SELF-CARE
[2023-09-06] MEDS ORDERED: FLUCONAZOLE 150 MG TAB PO STA (13:10)
== END 2023-09-06 14:30 | disposition home or self-care (01) ==
LOC: OR 05:46 → 4FBP 09:46 → OR 09-06 14:30
PROVIDERS: ATTEND Obstetrics & Gynecology Obstetrics
DX: D25.1 Intramural leiomyoma of uterus (principal); N92.0 Excessive and frequent menstruation with regular cycle; N85.2 Hypertrophy of uterus; N72 Inflammatory disease of cervix uteri; M19.90 Unspecified osteoarthritis, unspecified site; G89.29 Other chronic pain; F07.81 Postconcussional syndrome; Z79.899 Other long term (current) drug therapy; Z88.5 Allergy status to narcotic agent
CPT/HCPCS: 58554; 81025; 85025; 88307; J2250; J0330; J1200; J1100; J2300 ×2; J2710; J0690; J2405; J2001; J2274; J3010; J0131; J2704; J0665

== ENCOUNTER → 2023-10-03 | Outpatient (CLI) | payer OTHER ==
--- NOTE | 2023-10-04 21:48 | MM ---
Reason for Exam: Screening (asymptomatic). Last mammogram was performed 1 year(s) and 1 month(s) ago. Patient History: Menarche at age 14. First Full-Term at age 22. Hysterectomy at age 43. Hormonal Contraceptives for 2 months starting at age 38. 2010, Benign Ultrasound-Guided Core Biopsy on the left side. Maternal aunt had breast cancer. Risk Values: Malena 5 year model risk: 0.9%. NCI Lifetime model risk: 10.9%. Prior Study Comparison: 06/20/2018 Bilateral Screening Mammogram, [facility]. 09/08/2021 Bilateral Screening Mammogram, [facility]. 09/09/2022 Bilateral MG 3D screening mammo w/cad, [facility]. Tissue Density: The breast tissue is heterogeneously dense. This may lower the sensitivity of mammography. Findings: Analyzed By CAD. There is no suspicious group of microcalcifications or new suspicious mass in either breast. Overall Assessment: Negative, BI-RAD 1 Management: Screening Mammogram of both breasts in 1 year. . Patient should continue monthly self-breast exams. A clinical breast exam by your physician is recommended on an annual basis. This exam should not preclude additional follow-up of suspicious palpable abnormalities. Note on Malena scores and lifetime risk: 1. A Malena score greater than 3% is considered moderate risk. If this is the case, consider specialist referral to assess eligibility for a risk reducing agent. 2. If overall lifetime risk for the development of breast cancer is 20% or higher, the patient may qualify for future screening with alternating mammogram and breast MRI. Electronically signed and approved by: Yuridia Winchester M.D. Radiologist
== END | disposition home or self-care (01) ==
LOC: RADMAMWWP 12:52
PROVIDERS: ATTEND Obstetrics & Gynecology Obstetrics
DX: Z12.31 Encounter for screening mammogram for malignant neoplasm of breast (principal); Z80.3 Family history of malignant neoplasm of breast
CPT/HCPCS: 77063; 77067

== ENCOUNTER 2024-12-01 19:10 | Emergency (ER) | payer MEDICARE, OTHER ==
--- NOTE | 2024-12-01 20:21 | ED ---
General Adult HPI - General Chief complaint: Extremity Problem,Nontraumatic Stated complaint: left hip pain Time Seen by Provider: 12/01/24 19:22 Source: patient, RN notes reviewed Mode of arrival: wheelchair Limitations: no limitations - History of Present Illness Initial comments: 44-year-old female presents to the emergency department for evaluation of left hip pain. Patient states that she has a history of hip osteoarthritis and receives steroid injections. She notes that over the past 5 to 7 days she has had worsening pain. She notes today while at a she has had much worse pain especially with walking. She does report that she has experienced pain that is similar in character but only had pain of this severity once or twice. She denies fever, chills. Denies loss of bowel or bladder function. Denies saddle anesthesia. - Related Data Home Medications Medication Instructions Recorded Confirmed Gabapentin 1,200 mg PO HS 06/17/22 08/31/23 Erenumab-Aooe [Aimovig 70 mg SQ QMONTHLY 03/29/23 08/31/23 Autoinjector] Ferrous Sulfate [Iron (65 MG 325 mg PO HS 03/29/23 08/31/23 Elemental)] L.acidoph,Paracasei, B.lactis 1 cap PO DAILY 03/29/23 08/31/23 [Probiotic] ARIPiprazole [Abilify] 10 mg PO DAILY 08/31/23 08/31/23 DULoxetine HCL [Cymbalta] 120 mg PO DAILY 08/31/23 08/31/23 Gabapentin [Neurontin] 600 mg PO QAM 08/31/23 08/31/23 lamoTRIgine [lamoTRIgine ER] 50 mg PO HS 08/31/23 08/31/23 methocarbamoL 500 mg PO BID 08/31/23 08/31/23 Allergies Allergy/AdvReac Type Severity Reaction Status Date / Time hydromorphone [From Dilaudid] Allergy Unknown family hx Verified 12/01/24 19:20 of severe reaction-dr instructed not to use. nickel Allergy Unknown infected Verified 12/01/24 19:20 ears with nickel/surgical steel Review of Systems ROS Statement: Those systems with pertinent positive or pertinent negative responses have been documented in the HPI. ROS Other: All systems not noted in ROS Statement are negative. Past Medical History Past Medical History: No Reported History, Osteoarthritis (OA) Additional Past Medical History / Comment(s): chronic back pain. herniated disc, ulcer, endometriosis, fibroids, post concussion syndrome History of Any Multi-Drug Resistant Organisms: None Reported Past Surgical History: No Surgical Hx Reported Additional Past Surgical History / Comment(s): breast biopsy L breast Past Anesthesia/Blood Transfusion Reactions: No Reported Reaction Past Psychological History: Anxiety, Depression Smoking Status: Never smoker Past Alcohol Use History: None Reported Past Drug Use History: None Reported General Exam Limitations: no limitations General appearance: alert, in no apparent distress Head exam: Present: atraumatic, normocephalic, normal inspection Eye exam: Present: normal appearance, PERRL, EOMI. Absent: scleral icterus, conjunctival injection, periorbital swelling ENT exam: Present: normal exam, mucous membranes moist Neck exam: Present: normal inspection. Absent: tenderness, meningismus, lymphadenopathy Respiratory exam: Present: normal lung sounds bilaterally. Absent: respiratory distress, wheezes, rales, rhonchi, stridor Cardiovascular Exam: Present: regular rate, normal rhythm, normal heart sounds. Absent: systolic murmur, diastolic murmur, rubs, gallop, clicks Extremities exam: Present: normal inspection, full ROM, normal capillary refill. Absent: tenderness, pedal edema, joint swelling, calf tenderness Back exam: Present: normal inspection, full ROM. Absent: tenderness Neurological exam: Present: alert, oriented X3 Psychiatric exam: Present: normal affect, normal mood Skin exam: Present: warm, dry, intact, normal color. Absent: rash Course Vital Signs 12/01/24 12/01/24 19:13 21:19 Temperature 98.0 F Pulse Rate 119 H 92 Respiratory 18 18 Rate Blood Pressure 130/72 122/77 O2 Sat by Pulse 97 100 Oximetry Medical Decision Making - Medical Decision Making Was pt. sent in by a medical professional or institution (, PA, MACHINE DEICER ELEMENT WINDER, urgent care, hospital, or long-term...) When possible be specific @ -[No] Did you speak to anyone other than the patient for history (EMS, parent, family, police, friend...)? What history was obtained from this source @ -[No] Did you review nursing and triage notes (agree or disagree)? Why? @ -[I reviewed and agree with nursing and triage notes] Were old charts reviewed (outside hosp., previous admission, EMS record, old EKG, old radiological studies, urgent care reports/EKG's, long-term records)? Report findings @ -[No old charts were reviewed] Differential Diagnosis (chest pain, altered mental status, abdominal pain women, abdominal pain men, vaginal bleeding, weakness, fever, dyspnea, syncope, headache, dizziness, GI bleed, back pain, seizure, CVA, palpatations, mental health, musculoskeletal)? @ -Differential Musculoskeletal Muscular strain, contusion, ligament sprain, fracture, arthritis, septic arthritis, bursitis, cellulitis, muscle spasm, nerve compression, DVT, arterial occlusion, herpes zoster, electrolyte abnormality, tumor.... This is not meant to be in all inclusive list EKG interpreted by me (3pts min.). @ -None X-rays interpreted by me (1pt min.). @ -[None done] CT interpreted by me (1pt min.). @ -[None done] U/S interpreted by me (1pt. min.). @ -[None done] What testing was considered but not performed or refused? (CT, X-rays, U/S, labs)? Why? @ -[None] What meds were considered but not given or refused? Why? @ -[None] Did you discuss the management of the patient with other professionals (professionals i.e. , PA, MACHINE DEICER ELEMENT WINDER, lab, RT, psych nurse, social media project manager, buckle stapler, teacher, aboriginal liaison officer, employment evaluator/case manager)? Give summary @ -[No] Was smoking cessation discussed for >3mins.? @ -[No] Was critical care preformed (if so, how long)? @ -[No] Were there social determinants of health that impacted care today? How? (Homele ssness, low income, unemployed, alcoholism, drug addiction, transportation, low edu. Level, literacy, decrease access to med. care, care home, rehab)? @ -[No] Was there de-escalation of care discussed even if they declined (Discuss DNR or withdrawal of care, Hospice)? DNR status @ -[No] What co-morbidities impacted this encounter? (DM, HTN, Smoking, COPD, CAD, Cancer, CVA, ARF, Chemo, Hep., AIDS, mental health diagnosis, sleep apnea, morbid obesity)? @ -[None] Was patient admitted / discharged? Hospital course, mention meds given and route, prescriptions, significant lab abnormalities, going to OR and other pertinent info. @ -[hospital course] Undiagnosed new problem with uncertain prognosis? @ -[No] Drug Therapy requiring intensive monitoring for toxicity (Heparin, Nitro, Insulin, Cardizem)? @ -[No] Were any procedures done? @ -[No] Diagnosis/symptom? @ -[default] Acute, or Chronic, or Acute on Chronic? @ -[default] Uncomplicated (without systemic symptoms) or Complicated (systemic symptoms)? @ -[default] Side effects of treatment? @ -[No] Exacerbation, Progression, or Severe Exacerbation? @ -[No] Poses a threat to life or bodily function? How? (Chest pain, [place], [place], pneumonia, PE, COPD, DKA, ARF, appy, cholecystitis, CVA, Diverticulitis, Homicidal, Suicidal, threat to staff... and all critical care pts) @ -[No] Disposition Clinical Impression: Hip osteoarthritis Disposition: HOME SELF-CARE Condition: Stable Instructions (If sedation given, give patient instructions): Osteoarthritis (ED), Hip Pain (ED) Additional Instructions: Please follow up with your doctor. Return to the emergency department for new or worsening symptoms. Is patient prescribed a controlled substance at d/c from ED?: No Referrals: Vladimir Bazzi DO [Primary Care Provider] - 1-2 days
[2024-12-01] MEDS: ACETAMINOPHEN TAB 500 MG TAB PO STA (20:31)
[2024-12-01] MEDS: ORPHENADRINE 30 MG/ML 2 ML VIAL IM STA (20:32)
--- NOTE | 2024-12-01 21:23 | XR ---
EXAMINATION TYPE: XR pelvis AP view DATE OF EXAM: 12/01/2024 8:58 PM COMPARISON: None. CLINICAL INDICATION: Female, 44 years old with history of pain, pain TECHNIQUE: AP view(s) obtained. FINDINGS: Femoral heads articulate acetabulum. Right hip joint space is preserved. There is loss of the left hi p joint space. Subchondral cyst formation within the superior acetabulum and within the femoral head is evident.. There is loss of the joint space. No acute fractures are identified. Symphysis pubis and sacroiliac joints are normal IMPRESSION: 1. Advanced degenerative changes left hip [facility], , 12/01/2024 9:20 PM
[2024-12-01] MEDS: ACET/COD 300 MG/30 MG STARTER PACK 6 TAB BTL PO STA (22:05)
[2024-12-01] MEDS: MORPHINE SULFATE 4 MG/ML SYRINGE IM STA (22:06)
[2024-12-01 22:24] VITALS: BP 129/83; PULSE 95; RESP 20; TEMP 98.2
== END 2024-12-01 22:23 | disposition home or self-care (01) ==
LOC: EC 19:10
DX: M16.12 Unilateral primary osteoarthritis, left hip (principal); Z88.5 Allergy status to narcotic agent; Z88.8 Allergy status to other drugs, medicaments and biological substances
CPT/HCPCS: 72170; 99283; 96372 ×2; J2270; J2360

== ENCOUNTER 2024-12-31 18:57 | Emergency (ER) | payer MEDICARE, OTHER ==
--- NOTE | 2024-12-31 19:20 | ED ---
Extremity Problem HPI - General Chief complaint: Extremity Problem,Nontraumatic Stated complaint: rt knee pain Time Seen by Provider: 12/31/24 19:20 Source: patient, RN notes reviewed Mode of arrival: ambulatory Limitations: no limitations - History of Present Illness Initial comments: 44-year-old female presenting to the ER for evaluation of right knee pain. Patient states for the past 4 days she has been having a sharp achy pain to her medial right knee. She does report pain is worse with flexion of the knee joint. She denies any paresthesias or radiation of pain. She has attempted ice, rest, elevation without relief of symptoms. She has not taken any oral medications. She is prescribed Neurontin she has been taking this as prescribed. Patient states she typically ambulates with a walker as she needs a left hip replacement. She has been able to do so and bear weight on right lower extremity. Patient states she is desperate for pain control upon evaluation as she is scheduled to attend her son's graduation in [place] tomorrow. Patient denies any other complaints. No calf pain or history of blood clots. No known injuries. - Related Data Home Medications Medication Instructions Recorded Confirmed Gabapentin 1,200 mg PO HS 06/17/22 08/31/23 Erenumab-Aooe [Aimovig 70 mg SQ QMONTHLY 03/29/23 08/31/23 Autoinjector] Ferrous Sulfate [Iron (65 MG 325 mg PO HS 03/29/23 08/31/23 Elemental)] L.acidoph,Paracasei, B.lactis 1 cap PO DAILY 03/29/23 08/31/23 [Probiotic] ARIPiprazole [Abilify] 10 mg PO DAILY 08/31/23 08/31/23 DULoxetine HCL [Cymbalta] 120 mg PO DAILY 08/31/23 08/31/23 Gabapentin [Neurontin] 600 mg PO QAM 08/31/23 08/31/23 lamoTRIgine [lamoTRIgine ER] 50 mg PO HS 08/31/23 08/31/23 methocarbamoL 500 mg PO BID 08/31/23 08/31/23 Allergies Allergy/AdvReac Type Severity Reaction Status Date / Time hydromorphone [From Dilaudid] Allergy Unknown family hx Verified 12/31/24 19:01 of severe reaction-dr instructed not to use. nickel Allergy Unknown infected Verified 12/31/24 19:01 ears with nickel/surgical steel Review of Systems ROS Statement: Those systems with pertinent positive or pertinent negative responses have been documented in the HPI. ROS Other: All systems not noted in ROS Statement are negative. Past Medical History Past Medical History: Osteoarthritis (OA) Additional Past Medical History / Comment(s): chronic back pain. herniated disc, ulcer, endometriosis, fibroids, post concussion syndrome History of Any Multi-Drug Resistant Organisms: None Reported Past Surgical History: No Surgical Hx Reported Additional Past Surgical History / Comment(s): breast biopsy L breast Past Anesthesia/Blood Transfusion Reactions: No Reported Reaction Past Psychological History: Anxiety, Depression Smoking Status: Never smoker Past Alcohol Use History: None Reported Past Drug Use History: None Reported General Exam Limitations: no limitations General appearance: alert, in no apparent distress Respiratory exam: Present: normal lung sounds bilaterally. Absent: respiratory distress, wheezes, rales, rhonchi, stridor Cardiovascular Exam: Present: regular rate, normal rhythm, normal heart sounds. Absent: systolic murmur, diastolic murmur, rubs, gallop, clicks Extremities exam: Present: full ROM (Pain with flexion), tenderness (Right knee medial joint line), normal capillary refill (2+ DP/PT pulses right), other (Minimal contusion overlying right knee medial joint line) Neurological exam: Present: alert, oriented X3, CN II-XII intact Skin exam: Present: warm, dry, intact, normal color. Absent: rash Course Vital Signs 12/31/24 12/31/24 18:58 20:56 Temperature 98.0 F 98.1 F Pulse Rate 132 H 81 Respiratory 22 17 Rate Blood Pressure 135/73 112/70 O2 Sat by Pulse 97 99 Oximetry Medical Decision Making - Medical Decision Making Was pt. sent in by a medical professional or institution (, PA, TIRE TRUCKER, urgent care, hospital, or fci...) When possible be specific @ -No Did you speak to anyone other than the patient for history (EMS, parent, family, police, friend...)? What history was obtained from this source @ -No Did you review nursing and triage notes (agree or disagree)? Why? @ -I reviewed and agree with nursing and triage notes Were old charts reviewed (outside hosp., previous admission, EMS record, old EKG, old radiological studies, urgent care reports/EKG's, fci records)? Report findings @ -No old charts were reviewed Differential Diagnosis (chest pain, altered mental status, abdominal pain women, abdominal pain men, vaginal bleeding, weakness, fever, dyspnea, syncope, headache, dizziness, GI bleed, back pain, seizure, CVA, palpatations, mental health, musculoskeletal)? @ -Differential Musculoskeletal: Muscular strain, contusion, ligament sprain, fracture, arthritis, septic arthritis, bursitis, cellulitis, muscle spasm, nerve compression, DVT, arterial occlusion, herpes zoster, electrolyte abnormality, tumor.... This is not meant to be in all inclusive list EKG interpreted by me (3pts min.). @ -None done X-rays interpreted by me (1pt min.). @ -Right knee x-ray interpreted me negative for acute fractures or dislocations. CT interpreted by me (1pt min.). @ -None done U/S interpreted by me (1pt. min.). @ -None done What testing was considered but not performed or refused? (CT, X-rays, U/S, labs)? Why? @ -None What meds were considered but not given or refused? Why? @ -None Did you discuss the management of the patient with other professionals (professionals i.e. , PA, TIRE TRUCKER, lab, RT, psych nurse, social sciences research scientist, drug purchaser, teacher, intelligence officer basic, disease case manager rn)? Give summary @ -No Was smoking cessation discussed for >3mins.? @ -No Was critical care preformed (if so, how long)? @ -No Were there social determinants of health that impacted care today? How? (Homelessness, low income, unemployed, alcoholism, drug addiction, transportation, low edu. Level, literacy, decrease access to med. care, half-way, rehab)? @ -No Was there de-escalation of care discussed even if they declined (Discuss DNR or withdrawal of care, Hospice)? DNR status @ -No What co-morbidities impacted this encounter? (DM, HTN, Smoking, COPD, CAD, Cancer, CVA, ARF, Chemo, Hep., AIDS, mental health diagnosis, sleep apnea, morbid obesity)? @ -None Was patient admitted / discharged? Hospital course, mention meds given and route, prescriptions, significant lab abnormalities, going to OR and other pertinent info. @ -Discharge. 44-year-old female presented the ER for evaluation of right knee pain. Vital stable. Patient is neurovascularly intact with full active range of motion. There is pain elicited with flexion of knee. Extensor mechanism intact. Patient is able to bear weight and ambulate normally with a walker. She does use a walker as she is currently being evaluated for a left hip replacement. X-rays obtained negative for acute fractures or dislocations. Patient provided symptomatic control in the ER. Patient educated on conservative treatment options and will be discharged with a Tylenol 3 starter pack. Advise close follow-up with orthopedics for further evaluation and treatment, referral given. Return parameters discussed. Patient discharged stable condition. Patient verbally expressed understanding. The care plan. Case discussed with ED attending, Dr. Trujillo. Undiagnosed new problem with uncertain prognosis? @ -No Drug Therapy requiring intensive monitoring for toxicity (Heparin, Nitro, Insulin, Cardizem)? @ -No Were any procedures done? @ -No Diagnosis/symptom? @ -Knee pain Acute, or Chronic, or Acute on Chronic? @ -Acute Uncomplicated (without systemic symptoms) or Complicated (systemic symptoms)? @ -Uncomplicated Side effects of treatment? @ -No Exacerbation, Progression, or Severe Exacerbation? @ -No Poses a threat to life or bodily function? How? (Chest pain, [place], [place], pneumonia, PE, COPD, DKA, ARF, appy, cholecystitis, CVA, Diverticulitis, Homicidal, Suicidal, threat to staff... and all critical care pts) @ -Unlikely - Radiology Data Radiology results: report reviewed, image reviewed Disposition Clinical Impression: Knee pain Disposition: HOME SELF-CARE Condition: Stable Instructions (If sedation given, give patient instructions): Knee Pain (ED) Additional Instructions: Follow-up with PCP and orthopedics. Return to the ER for new or worsening concerns. Continue to rest ice use compression and elevate. Is patient prescribed a controlled substance at d/c from ED?: No Referrals: Vladimir Bazzi DO [Primary Care Provider] - 1-2 days Sylvain Arzola DO [Doctor of Osteopathic Medicine] - 1-2 days Time of Disposition: 20:16
--- NOTE | 2024-12-31 19:41 | XR ---
EXAMINATION TYPE: XR knee complete RT DATE OF EXAM: 12/31/2024 7:37 PM INDICATION: Patient age:Female; 44 years old; Reason for study: medial joint line pain; [facility]. pain COMPARISON: None. TECHNIQUE: The Right knee(s) was examined in Frontal, lateral and oblique projections. FINDINGS: No evidence of any acute osseous pathology, soft tissue swelling, or joint effusion is no oscar. IMPRESSION: No acute osseous pathology. [facility], , 12/31/2024 7:39 PM
[2024-12-31] MEDS: IBUPROFEN 600 MG TAB PO STA (19:55)
[2024-12-31] MEDS: ACET/COD 300 MG/30 MG STARTER PACK 6 TAB BTL PO STA (20:45)
[2024-12-31 20:58] VITALS: BP 112/70; PULSE 81; RESP 17; TEMP 98.1
== END 2024-12-31 20:57 | disposition home or self-care (01) ==
LOC: EC 18:57
DX: S80.01XA Contusion of right knee, initial encounter (principal); Z88.5 Allergy status to narcotic agent; Z91.048 Other nonmedicinal substance allergy status; X58.XXXA Exposure to other specified factors, initial encounter
CPT/HCPCS: 99283

== ENCOUNTER → 2025-02-03 | Outpatient (CLI) | payer MEDICARE ==
--- NOTE | 2025-02-03 13:25 | MM ---
Reason for Exam: Screening (asymptomatic). Last mammogram was performed 1 year(s) and 4 month(s) ago. Patient History: Menarche at age 14. First Full-Term at age 22. Hysterectomy at age 43. Patient has history of breast feeding. Hormonal Contraceptives for 2 months starting at age 38. 12/23/2010, Excisional Biopsy on the Left side. 2010, Benign Ultrasound-Guided Core Biopsy on the left side. Maternal aunt had breast cancer. Risk Values: Malena 5 year model risk: 1.6%. NCI Lifetime model risk: 14.1%. Prior Study Comparison: 09/08/2021 Bilateral Screening Mammogram, [facility]. 09/09/2022 Bilateral MG 3D screening mammo w/cad, [facility]. 10/03/2023 Bilateral MG 3D screening mammo w/cad, [facility]. Tissue Density: The breasts are heterogeneously dense, which may obscure small masses. Findings: Analyzed By CAD. There is no suspicious group of microcalcifications or new suspicious mass in either breast. Overall Assessment: Negative, BI-RAD 1 Management: Screening Mammogram of both breasts in 1 year. Patient should continue monthly self-breast exams. A clinical breast exam by your physician is recommended on an annual basis. This exam should not preclude additional follow-up of suspicious palpable abnormalities. Note on Malena scores and lifetime risk: 1. A Malena score greater than 3% is considered moderate risk. If this is the case, consider specialist referral to assess eligibility for a risk reducing agent. 2. If overall lifetime risk for the development of breast cancer is 20% or higher, the patient may qualify for future screening with alternating mammogram and breast MRI. [facility], , 02/03/2025 1:22 PM. Electronically signed and approved by: Yuridia Winchester M.D. Radiologist
== END | disposition home or self-care (01) ==
LOC: RADMAMWWP 09:39
PROVIDERS: ATTEND Family Medicine
DX: Z12.31 Encounter for screening mammogram for malignant neoplasm of breast (principal); R92.333 Mammographic heterogeneous density, bilateral breasts; Z80.3 Family history of malignant neoplasm of breast; Z92.0 Personal history of contraception
CPT/HCPCS: 77063; 77067